=== PATIENT | female | born 1955 | race Caucasian/White ===

== ENCOUNTER → 2021-05-15 10:49 | Outpatient (BNVA) | payer MEDICARE, OTHER, SELFPAY | PROVIDERS: PCP Nurse Practitioner Adult Health; Visit Provider Orthopaedic Surgery | DX: M54.5 Low back pain (principal); Z47.89 Encounter for other orthopedic aftercare; Z98.1 Arthrodesis status | CPT/HCPCS: 72110 ==

== ENCOUNTER → 2021-05-29 11:58 | Day surgery (SDC) | payer MEDICARE, OTHER, SELFPAY | PROVIDERS: PCP Nurse Practitioner Adult Health; Visit Provider Orthopaedic Surgery | DX: Z01.818 Encounter for other preprocedural examination (principal) | CPT/HCPCS: 80048; 85025; 93005 ==

== ENCOUNTER 2021-05-29 13:26 | Outpatient (CLI) | payer MEDICARE, OTHER, SELFPAY ==
--- NOTE | 2021-05-29 13:55 | MR_ITS ---
WS: [id number] MRI THORACIC SPINE noncontrast. HISTORY: M40.209 - Unspecified kyphosis, site unspecified COMPARISON: Prior MRI lumbar spine and CT lumbar spine reviewed. TECHNIQUE: Multiplanar sequences are performed in sagittal and axial planes. Quality of this study is significantly compromised by artifact from the hardware in the lumbar spine and thoracic spine. Mild central cervical stenosis due to focal kyphosis at C2-3. There are 11 rib-bearing vertebral bodies. 5 lumbar nonrib-bearing vertebral bodies are identified. A rtifact in the dorsal column from T7 to T10 from the dorsal column stimulator electrodes and wires. T here is increase in the thoracic kyphosis. Disc spaces are diffusely narrowed with osteophytic ridging and disc bulging throughout the thoracic spine. Axial evaluation of the disc spaces and foramina is limited. At T6-7 bilateral small paracent ral disc protrusions. T7-8: Mild RIGHT foraminal stenosis. There is significant artifact through the mid thoracic spine. MR/MR thoracic spin wo con* [id number] IMPRESSION: 1. Quality of this examination is significantly compromised by dorsal column s timulator, kyphosis and lumbar hardware. 2. No high-grade central stenosis or cord compression. 3. Small paracentral disc protrusions at C6-7. 4. No signal abnormality within the cord is identified. 5. 11th thoracic vertebral bodies.
== END 2021-05-29 13:27 | disposition home or self-care (01) ==
PROVIDERS: PCP Nurse Practitioner Adult Health; Visit Provider Orthopaedic Surgery
DX: M40.209 Unspecified kyphosis, site unspecified (principal); Z20.822 Contact with and (suspected) exposure to COVID-19; M50.223 Other cervical disc displacement at C6-C7 level
CPT/HCPCS: 72146; 87635

== ENCOUNTER 2021-06-05 17:33 | Inpatient (IN) | payer MEDICARE, OTHER, SELFPAY ==
[2021-05-29 11:53] VITALS: BMI 23.6
--- NOTE | 2021-05-29 11:58 | ECG_ITS ---
[facility] Test Date: 2021-05-29 Pat Name: Estefany Neumann Department: Room: Gender: Female Director Of Recruitment: : 1955 Requested By: Britton Lenz Order Number: [id number] Geovani MD: Aaliyah Easley M.D. Measurements Intervals [place] Rate: 59 P: 59 [place]: 165 QRS: -22 QRSD: 82 T: 4 QT: 411 QTc: 408 Interpretive Statements SINUS BRADYCARDIA SEPTAL MYOCARDIAL INFARCTION [40+ ms Q WAVE IN V1/V2], PROBABLY OLD Nonspecific T wave change No previous ECG available for comparison Electronically Signed On 05-30-2021 0:50:38 CDT by Aaliyah Easley M.D. [email or web address]
[2021-05-29 12:20] LABS: Basophils % 0.6 %; Eosinophils # 0.3 10^3/uL (0.0-0.8); Eosinophils % 3.8 %; Hematocrit 36.7 % (37.0-47.0); Hemoglobin 11.7 g/dL (11.5-15.3); Lymphocytes # 1.4 10^3/uL (0.8-4.8); Lymphocytes % 20.6 %; Mean Corpuscular HGB Conc 31.9 g/dL (30.0-36.0); Mean Corpuscular Hemoglobin 29.3 pg (28.0-34.0); Mean Corpuscular Volume 91.8 fL (81-99); Mean Platelet Volume 10.5 fL (7.4-10.4); Monocytes # 0.4 10^3/uL (0.2-0.9); Monocytes % 6.6 %; Neutrophils # 4.53 10^3/uL (1.8-7.7); Neutrophils % 68.2 %; Nucleated Red Blood Cells % 0 %; Platelet Count 311 10^3/cmm (130-400); Red Cell Distribution Width 12.8 % (12.1-15.1); White Blood Count 6.6 10^3/uL (4.0-10.0)
[2021-05-29 12:37] LABS: Anion Gap 16.2 (5-19); Blood Urea Nitrogen 19 mg/dL (8-23); Calcium 8.6 mg/dL (8.5-10.5); Carbon Dioxide 26 mmol/L (22-29); Chloride 101 mmol/L (98-107); Glomerular Filtration Rate 37.5 mL/min (90-130); Glucose 106 mg/dL (65-115); Osmolality Calculated 291 mOsm/kg (285-295); Potassium 4.2 mmol/L (3.5-5.1); Sodium 139 mmol/L (136-145)
--- NOTE | 2021-05-29 12:38 | ANES.PREANE2 ---
Pre-Anesthetic Assessment Pre-Anesthetic Assessment: Height/Weight: Height 1.55 m Weight 56.699 kg Preop Diagnosis: proximal junctional kyphosis Proposed Procedure: Operation Date: 06/05/21 07:00 Proposed Procedures p PLIF at L2/3 w revision [id number] removal of hardware from the spine, removal of spinal cord stimulator. 97872, 32562, 69317, 08116, 00381, 27961, 68660, 78568, 70655, 72124 M40.209 M96.1(Not Applicable) - Mauricio Guerrero, DO Was Beta Kian taken within 24 hours: Yes Was Clonidine taken within 24 hours: N/A Social: Social History: Tobacco (h/o smoking) and No alcohol Exam: Pre-Anes Outpt Exam: alert, oriented x 3 and regular rate & rhythm Airway: Submandibular: WNL Cervical ROM: WNL MP: 2 Dentition: False Pulmonary: Pulmonary: COPD CV/HEM: CV/HEM: CAD, HTN and PVD Comments: To see cardiology 05/31. GI: GI: GERD Musc/skel: Musc/skel: Lower Back Pain and OA/DJD Anesthetic Plan: ASA status: 3 Anesthesia: General Other: A.line Risk of > 500 ml blood loss (7ml/kg in children): Yes, adequate IV access and fluids planned PFSH Anesthesia PFSH: Social History (Updated 05/15/21 @ 11:35 by Katrin Long LPN) Smoking and tobacco status: former smoker Data Anesthesia CBC & Chem 7: 05/29/21 12:08 05/29/21 12:08 Other Labs: Laboratory Results - last 48 hr 05/29/21 05/29/21 12:08 12:08 WBC 6.6 RBC 4.00 L Hgb 11.7 Hct 36.7 L MCV 91.8 MCH 29.3 MCHC 31.9 RDW 12.8 Plt Count 311 MPV 10.5 H Neut % (Auto) 68.2 Lymph % (Auto) 20.6 Addison % (Auto) 6.6 Eos % (Auto) 3.8 Baso % (Auto) 0.6 Neut # (Auto) 4.53 Lymph # (Auto) 1.4 Addison # (Auto) 0.4 Eos # (Auto) 0.3 Baso # (Auto) 0.0 Nucleated RBC % (auto) 0 Nucleated RBCs # 0.0 Sodium 139 Potassium 4.2 Chloride 101 Carbon Dioxide 26 Anion Gap 16.2 BUN 19 Glucose 106 Calculated Osmolality 291 Calcium 8.6 Cardiac Studies: No Data to Display
[2021-06-05] VITALS (29 sets, daily range): BP systolic 111–190; BP diastolic 60–103; PULSE 54–77; RESP 12–26; TEMP 36.3–36.6; O2SAT 92–100
--- NOTE | 2021-06-05 | SCC_ITS ---
Procedure Done: 1. L2/3 Interbody fusion with posterolateral fusion 2. Instrumentation T9-S1 3. Lumbopelvic Instrumentation 4. Fusion from T9 to pelvis 5. Cage at L2/3 6. Laminectomy L2 7. Removal of deep hardware from spine 8. Removal of nerve stimulator 9. removal of battery pack from nerve stimulator 10. use of autograft from same incision 11. allograft 12. Bone marrow aspirate from right iliac crest 13. Use of computer navigation/ stereotactic for the spine 14. Isabel- Tico Osteotomy T12 to correct kyphosis 30 seconds of fluoroscopic guidance, for a cumulative dose of 24.6 mGy, was provided to Dr. Guerrero by the radiology department. C-arm images of the lumbar spine were saved for the patient's permanent record. KATHI
--- NOTE | 2021-06-05 08:36 | P.ANESUD_ITS ---
Pre-Anesthetic Update Pre-Anesthetic Assessment: Date of Surgery/Procedure: 06/05/21 Preop Fiona gnosis: proximal junctional kyphosis Proposed Procedure: Operation Date: 06/05/21 11:00 Proposed Procedures p PLIF at L2/3 w revision [id number]-Loyzih removal of hardware from the spine, removal of spinal cord stimulator. 34223, 05837, 43127, 22011, 66267, 25680, 94693, 69599, 85638, 81570 M40.209 M96.1(Not Applicable) - Mauricio Guerrero, DO Any changes to Pre-Anesthetic Assessment?: No Exam: Pre-Anes Outpt Exam: alert, oriented x 3, clear to auscultation bilaterally and regular rate & rhythm Cardiac Studies: No Data to Display
--- NOTE | 2021-06-05 08:36 | ANES.PAUD2 ---
Pre-Anesthetic Update Pre-Anesthetic Assessment: Date of Surgery/Procedure: 06/05/21 Preop Diagnosis: proximal junctional kyphosis Proposed Procedure: Operation Date: 06/05/21 11:00 Proposed Procedures p PLIF at L2/3 w revision T37-Jeesnd removal of hardware from the spine, removal of spinal cord stimulator. 45576, 34624, 26016, 62496, 01595, 81920, 29693, 47849, 63184, 66320 M40.209 M96.1(Not Applicable) - Mauricio Guerrero, DO Any changes to Pre-Anesthetic Assessment?: No Exam: Pre-Anes Outpt Exam: alert, oriented x 3, clear to auscultation bilaterally and regular rate & rhythm Cardiac Studies: No Data to Display
--- NOTE | 2021-06-05 09:16 | XRR_ITS ---
PROCEDURE INFORMATION: Exam: XR Chest Exam date and time: 06/05/2021 9:16 AM Age: 66 years old Clinical indication: Pre-operative exam; Cardiovascular screening and respiratory screening exam; Additional info: Surgery TECHNIQUE: Imaging protocol: XR of the chest. Views: 1 view. COMPARISON: No relevant prior studies available. FINDINGS: Tubes, catheters and devices: Thoracic spinal stimulator present. Lungs: No pneumonia or pulmonary edema. Pleural spaces: No pleural effusion or pneumothorax. Heart/Mediastinum: The cardiac silhouette is not enlarged. The mediastinal contours are normal. Bones/joints: No acute osseous abnormality. XR/XR chest 1V portable [id number] IMPRESSION: No acute abnormality.
--- NOTE | 2021-06-05 09:29 | P.HPUD_ITS ---
Surgery/Procedure H&P Update DATE OF PROCEDURE: June 05, 2021 DATE H&P PERFORMED: 06/05/21 PREOP DIAGNOSIS: proximal junctional kyphosis PLANNED PROCEDURE: Operation Date: 06/05/21 11:00 Proposed Procedures p PLIF at L2/3 w revision Q45-Lqweho removal of hardware from the spine, removal of spinal cord stimulator. 23318, 26854, 21729, 86508, 67979, 12314, 74897, 62955, 25367, 96024 M40.209 M96.1(Not Applicable) - Mauricio Guerrero, DO
--- NOTE | 2021-06-05 09:29 | W.PM.OPSUD ---
Surgery/Procedure H&P Update DATE OF PROCEDURE: June 05, 2021 DATE H&P PERFORMED: 06/05/21 PREOP DIAGNOSIS: proximal junctional kyphosis PLANNED PROCEDURE: Operation Date: 06/05/21 11:00 Proposed Procedures p PLIF at L2/3 w revision T64-Xovuil removal of hardware from the spine, removal of spinal cord stimulator. 29437, 77541, 97436, 87859, 74632, 34907, 34474, 90425, 92748, 72555 M40.209 M96.1(Not Applicable) - Mauricio Guerrero, DO
--- NOTE | 2021-06-05 09:30 | PM.HP ---
Providers/Chief Complaint Primary Care Provider: Sienna Vora APRN Chief Complaint: PLIF at L2/3 w revision Z03-Mndbmz removal of hard History of Present Illness Estefany Neumann is a 66 year old femaleback pain. She is using a walker. Patient is unable to stand up straight. Chief Complaint: back and neck pain Onset: years Duration: years Characteristics: ache Severity: 210 Location: neck and neck Radiating symptoms: bilat lower extremities numbness , numbness to medial right thigh Aggravating factors: standing up straight, pain stim, unable to walk any distance Alleviating factors: Tylenol decreases pain Neuro deficits: denies incontinence of bowel/bladder, saddle anesthesia. Prior tx: pain stimulator Hf10 Nevro implant in 11/[address] Mac, physical therapy with no change in symptoms Review of Systems Narrative: General ROS: negative for weight changes, fever ENT ROS: negative for nasal congestion, drainage or bleeding, sore throat, dysphagia or ear pain Eyes: PERRL Hematological and Lymphatic ROS: negative for swollen glands or abnormal bleeding Endocrine ROS: negative for polyuria/polydpsia or new changes in weight Respiratory ROS: negative for cough, shortness of breath, or wheezing Cardiovascular ROS: negative for chest pain or dyspnea on exertion Gastrointestinal ROS: negative for reflux, abdominal pain, change in bowel habits, or black or bloody stools Musculoskeletal ROS: negative for back pain, neck pain, or joint pain or swelling except for current problem Neurological ROS: negative for TIA or stoke symptoms Skin: no rashes Medications/Allergies Home Medications Medication Instructions Recorded Confirmed Last Taken Type albuterol sulfate 90 mcg/actuation 2 puff INHALATION Q6H PRN 05/15/21 05/29/21 Unknown History aerosol inhaler budesonide-formoterol HFA 80 2 puff INHALATION BID 05/15/21 05/29/21 Unknown History mcg-4.5 mcg/actuation aerosol inhaler clopidogrel 75 mg tablet 75 mg PO DAILY 05/15/21 05/29/21 Unknown History duloxetine 30 mg capsule,delayed 30 mg PO DAILY 05/15/21 05/29/21 Unknown History release metoprolol suc 100 1 tab PO DAILY 05/15/21 05/29/21 Unknown History mg-hydrochlorothiazide 12.5 mg tablet,ext.rel 24 hr nitroglycerin 0.4 mg sublingual 0.4 mg SUBLINGUAL Q5M PRN 05/15/21 05/29/21 Unknown History tablet pantoprazole 40 mg tablet,delayed 40 mg PO DAILY 05/15/21 05/29/21 Unknown History release rizatriptan 10 mg tablet 10 mg PO Q2H PRN 05/15/21 05/29/21 Unknown History rosuvastatin 40 mg tablet 40 mg PO DAILY 05/15/21 05/29/21 Unknown History zolpidem 10 mg tablet 10 mg PO DAILY 05/15/21 05/29/21 Unknown History ropinirole 1 mg PO DAILY 05/29/21 05/29/21 Unknown History Allergies Allergy/AdvReac Type Severity Reaction Status Date / Time meperidine [From Demerol] Allergy ADR-Migrain Verified 05/29/21 11:47 e PFSH Acute PFSH: Social History (Updated 05/15/21 @ 11:35 by Katrin Long LPN) Smoking and tobacco status: former smoker Physical Exam Narrative: EXAM NARRATIVE: CONSTITUTIONAL: The patient is a normal appearing [] in no apparent distress. GENERAL: Patient in no acute distress. CARDIAC: Regular rate and rhythm. CHEST: Normal inspiratory effort, normal respiratory rate. ABDOMEN: Soft and nontender. SKIN: Clear, warm and intact. NEURO?PSYCH: The patient is alert and oriented to person, place and time. Sensorv /SILT Motor StrengthShoulder abduction C5 5/5Wrist extension C6 5/5Elbow extension C7 5/5Hand Laborer Syrup Machine C8 5/5Finger abduction T15/5 Radial/ Ulnar/ Median n intact LowerSensory (SILT)Motor StrengthHin flexion L2/3Ant/inner thigh 5/5Hip adduction L2/3 5/5Knee extension L4 Lat thigh, 5/5Toe dorsiflexion L5 5/5Ankle dorsiflexion L5/ V47Aqfdsxd flexion S1 5/5 DTRBleeps 2+Triceps 2+Brachioradialis 2+Patellar 2+Achilles 2+ MUSCULOSKELETAL: [] UPPEREXTREMITIES: The patient had full active ROM in fingers, wrist, elbow, and shoulder. The patient demonstrated ability to fully flex/extend/abduct/adduct fingers, make ok sign, cross 2nd/3rd digits, extend 1st digit fully.. Radial pulse 2+, CR<2 seconds. LOWER EXTREMITIES: Pt has full, active ROM of toes, ankle, knee, and hip. Dorsalis pedis/posterior tibialis pulses 2+, CR<2 seconds. SPINE: Skin warm, dry, intact. 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
[2021-06-05] MEDS: heparin, porcine 1,000 unit/mL INJ 10 mL 10000 UNIT IRRIGATION (11:37)
[2021-06-05] MEDS: vancomycin 1,000 MG SDV 1000 MG XX ×2 (11:37→15:35)
--- NOTE | 2021-06-05 15:56 | XR_ITS ---
WS: [id number] Lumbar spine, C-arm fluoroscopy views, 06/05/2021 Clinical Data: LUMBAR PAIN Comparison: Lumbar spine, 05/15/2021. Findings: The patient has at least 7 pairs of pedicle screws from the lower thoracic level to the L5-S1 one lev el. There are interbody fusions at at least 4 levels from L1-L2 through L4-L5. There is an aortic end ograft in position. XR/XR lumbar spine 1V [id number] Impression: Multilevel lower thoracic and lumbar posterior fusion with multiple interbody f usion devices.
--- NOTE | 2021-06-05 16:11 | PM.OP ---
Operative Report Date of procedure: June 05, 2021 Pre-op Diagnosis: proximal junctional kyphosis Post-op diagnosis: same Procedure Done: 1. L2/3 Interbody fusion with posterolateral fusion 2. Instrumentation T9-S1 3. Lumbopelvic Instrumentation 4. Fusion from T9 to pelvis 5. Cage at L2/3 6. Laminectomy L2 7. Removal of deep hardware from spine 8. Removal of nerve stimulator 9. removal of battery pack from nerve stimulator 10. use of autograft from same incision 11. allograft 12. Bone marrow aspirate from right iliac crest 13. Use of computer navigation/ stereotactic for the spine 14. Isabel- Tico Osteotomy T12 to correct kyphosis Surgeon: Mauricio Guerrero Anesthesia: General Estimated blood loss (mL): 200 Condition: stable Disposition: PACU Procedure: 1. L2/3 Interbody fusion with posterolateral fusion 2. Instrumentation T9-S1 3. Lumbopelvic Instrumentation 4. Fusion from T9 to pelvis 5. Cage at L2/3 6. Laminectomy L2 7. Removal of deep hardware from spine 8. Removal of nerve stimulator paddle 9. removal of battery pack from nerve stimulator 10. use of autograft from same incision 11. allograft 12. Bone marrow aspirate from right iliac crest 13. Use of computer navigation/ stereotactic for the spine 14. Isabel- Tico Osteotomy T12 to correct kyphosis Patient is brought to the operative suite. After undergoing anesthesia, the patient had neuro monitoring attached. Patient was then placed in the prone position on the Gabriel table. All areas of impingement were well-padded. Patient was then prepped and draped in the normal sterile fashion. Skin incision was then made from T9-Sacrum. Subperiosteal dissection was made out to the transverse processes of T9 and sacral ala. Once the exposure was complete attention was then brought to removing the pedicle screws that were curently in there. This was a Mark system there are multiple parts. All the parts were removed. Once all hardware was removed the pedicle screw holes were palpated and then the screws were placed into those holes at L3-L4-L5 and S1. Next attention was brought to the neurostimulator at the T10 level. The wires were identified and traced into the laminectomy site at T10. The laminectomy site was cleared. The neurostimulator was then pulled slowly. There is minimal bleeding once the paddle was removed. The wires were cut. And the paddle was removed. Attention was brought to removing the battery of the neurostimulator. Previous skin incision was used skin as it was opened and then the battery pack was removed from over the right iliac crest. Because incision was over the right iliac crest. The fiducial was connected by placing the pins. Once the pins were connected then the patient was connected to the pins and then linked to the computer. The PASSNFLY C arm was spun around and this data was then sent to the computer. Prior to placing the pedicle screws the [employer] (IMMI) bone marrow aspirate kit was used to aspirate bone marrow aspirate from the right iliac crest. This was done by using the sharp probe to open up the bone. Aspiration was performed and then the blunt probe was then used to dissect down to through the bone tunnel. An aspirating well drawn back a millimeter approximately 20 cc of bone marrow aspirate was used. And mixed with the allograft and autograft bone that will be used. The technique for placing the pedicle screws was to use a drill followed by the gearshift probe that is linked to the computer navigation. Followed by the ball probe to feel the superior inferior medial lateral keys of the pedicles. Then placement of the screws length to the computer navigation. Was done at each pedicle. Screws were placed at T9-L2. The L3 to S1 screws had already been placed using the previous screw holes where old hardware was removed. Next attention was brought to placing the iliac screws. This was done by placing the screws through the sacrum into the ala into the iliac crest. This was done using the gearshift probe that is linked to the navigation. Ball probe was then used then a 7.5 tap was used and then on the right side an 80 mm 8.5 pedicle screws placed. And on the left side a 70 screw was used. But the same technique. Next attention was brought to performing the laminectomy ofL2. This was done using the high-speed bur Kerrisons and curettes. Once the lamina was removed and then attention was brought to performing a partial facetectomy on the contralateral side. This was done again using the high-speed bur curettes and Kerrisons. The ligamentum flavum was taken down bilaterally from L2 to L3. Attention was then brought to the facet on the ipsilateral side. The facet was taken down. The L3 nerve was decompressed as it passed around the L3 pedicle. The laminectomy was done for purposes of decompressing the nerve as well as placement of the cage. The L2 nerve was identified as it traversed through the L2/3 foramen. The thecal sac was identified and retracted. The L2/3 disc space was identified. Using a knife the disc space was opened. And then sequential pam were placed. The first shaver was a 6 and the last shaver was a 8. Using a pituitary and down going curette the endplates were scraped and disc material was removed from the space. Once adequate decompression of the disc base was felt to be had. Osteoamp sponge was packed into the anterior aspect of the disc base. Then a size 8 cage from [employer] was placed after packing osteoamp into the cage. While placing the cage the thecal sac and L3 nerve was protected. C arm was used to ensure that the cages placed in the appropriate position. Next attention was brought to performing Isabel Tico osteotomy at T12. Laminectomy was performed and bilateral facets were taken down. This was done using high-speed bur and Kerrison rongeurs. Attention was then brought to attaching the rods to the screws placed in the bilaterally from L3 to the pelvis bilaterally. These rods were then torqued down. Attention was then brought to attaching the reduction tool onto the L2 and L1 screws bilaterally. And sequentially these were reduced the nusrat in order to facilitate patient getting her lordosis back and improving her lordosis. The rods were then reduced down and then the L2 was compressed L3 and L1 was compressed L2 using both the plate of osteotomy and the Isabel Tico osteotomy to facilitate regaining some lordosis. Caps were then placed sequentially from L2 up to T9. Caps were torqued into position. Locking the construct in place. Wound was copiously irrigated and then attention was brought to decorticating the facets and transverse processes laterally. Bone that was taken down from the lamina was used along with osteoamp fibers and sponges were packed into the lateral gutters along the facet joints. This was done bilaterally. Wound was then closed in a layered fashion starting with the thoracolumbar fascia. 0-stratafixwas used the sub cutaneous tissue was closed with 2-0 stratafix and skin with 3-o nylon Vicryl and nylon used to close the pouch where the prior battery pack was prior to doing this the pins for the fiducial removed.a steril Silverlon dressing was applied. Patient was then placed in the supine position. The endotracheal tube was removed and patient was transferred to the PACU in stable condition.
[2021-06-05] MEDS: fentaNYL 50 mcg/mL INJ 2mL IVP ×2 (16:51→16:56)
--- NOTE | 2021-06-05 17:49 | ANE.PACU2 ---
Inpatient post-anesthesia follow up: Airway intact: Yes Vital signs: Temperature 97.8 F Pulse Rate 63 Respiratory Rate 12 Blood Pressure 169/89 Pulse Oximetry 100 Oxygen Delivery Me thod Simple Mask Oxygen Flow Rate 8 Fraction of Inspir ed Oxygen Hydration adequate: Yes Nausea and vomiting: No Pain level: 3 Mental status: Baseline
[2021-06-05] MEDS: HYDROmorphone 1 mg/mL INJ 1 mL 0.5 MG IVP (18:01)
[2021-06-05] MEDS: hyDRALAzine 20 mg/mL INJ 1 mL 5 MG IVP (18:56)
[2021-06-05] MEDS: lactated ringers 1,000 ML 90 ML IV (18:56)
--- NOTE | 2021-06-05 18:58 | PM.CONSULT ---
Providers/Reason For Consult Consulting Physician/Specialty*: Hospitalist Reason for Consult*: medical management Attending Physician: Mauricio Guerrero DO Primary Care Provider: Sienna Vora APRN History of Present Illness History of Present Illness Pleasant 66-year-old lady who just arrived upstairs after surgery with multilevel disc fusion, removal of old hardware, removal of spinal stimulator. She is waking up from anesthesia. States mouth is dry. Otherwise is doing well. She tells me she has history of COPD for which she is on 4 L chronic oxygen. Uses CPAP at night. She has history of CAD with MO, stenting, for which she takes Plavix, metoprolol, rosuvastatin. Denies history of CHF. Denies history of CVA. Has history of HTN, HLD, GERD, RLS. She reports she otherwise has been at baseline state of health. Review of Systems Const: Denies: fever(s), chills, body aches or malaise Eyes: Denies: change in vision or eye redness ENMT: Denies: throat pain, oral sores or ear or mastoid pain Card: Denies: chest pain, edema, pre-syncope or dyspnea on exertion Resp: Denies: dyspnea, productive cough, change in phlegm color or hemoptysis GI: Denies: abdominal pain, nausea, vomiting, diarrhea, constipation, hematochezia or melena : Denies: flank pain, urinary frequency or hematuria Musc: Reports: back pain; Denies: joint swelling or joint redness Skin/Breast: Denies: rash, sores or new lesions Neuro: Denies: headache(s), numbness in extremities, weakness in extremities, dizziness, confusion or seizure-like activity Endo: Denies: polyuria or polydipsia Sal/Lymph: Denies: easy bleeding or purpura All/Imm: Denies: urticaria, throat swelling or tongue swelling Meds/Allergies Home Medications and Allergies Home Medications Medication Instructions Recorded Confirmed Last Taken Type albuterol sulfate 90 mcg/actuation 2 puff INHALATION Q6H PRN 05/15/21 06/05/21 06/04/21 History aerosol inhaler budesonide-formoterol HFA 80 2 puff INHALATION BID 05/15/21 06/05/21 06/04/21 History mcg-4.5 mcg/actuation aerosol inhaler clopidogrel 75 mg tablet 75 mg PO DAILY 05/15/21 06/05/21 05/28/21 History duloxetine 30 mg capsule,delayed 30 mg PO DAILY 05/15/21 06/05/21 06/04/21 History release metoprolol suc 100 1 tab PO DAILY 05/15/21 06/05/21 06/05/21 History mg-hydrochlorothiazide 12.5 mg tablet,ext.rel 24 hr nitroglycerin 0.4 mg sublingual 0.4 mg SUBLINGUAL Q5M PRN 05/15/21 05/29/21 Unknown History tablet pantoprazole 40 mg tablet,delayed 40 mg PO DAILY 05/15/21 06/05/21 06/05/21 History release rizatriptan 10 mg tablet 10 mg PO Q2H PRN 05/15/21 06/05/21 06/04/21 History rosuvastatin 40 mg tablet 40 mg PO DAILY 05/15/21 06/05/21 06/03/21 History zolpidem 10 mg tablet 10 mg PO DAILY 05/15/21 06/05/21 06/03/21 History ropinirole 1 mg PO DAILY 05/29/21 06/05/21 06/05/21 History Allergies Allergy/AdvReac Type Severity Reaction Status Date / Time meperidine [From Demerol] Allergy ADR-Migrain Verified 05/29/21 11:47 e Current Medications Current Medications Generic Name Dose Route Start Last Admin Trade Name Freq PRN Reason Stop Dose Admin Docusate Sodium 100 mg 06/05/21 18:00 06/05/21 18:34 Docusate Sodium 100 Mg Capsule PO Not Given BID RICHIE PFSH Acute PFSH: Medical History AAA (abdominal aortic aneurysm) Carpal tunnel syndrome Chronic kidney disease COPD (chronic obstructive pulmonary disease) Coronary atherosclerosis GERD (gastroesophageal reflux disease) HTN (hypertension) Insomnia Migraine Non-alcoholic fatty liver disease Surgical History History of cataract removal with insertion of prosthetic lens History of cholecystectomy History of foot surgery History of heart artery stent History of intestinal surgery Hx of appendectomy Hx of tonsillectomy Previous back surgery Family History Other No significant family history Social History (Updated 06/05/21 @ 19:02 by Cesar Michelle MD) Smoking and tobacco status: former smoker Alcohol intake: never Substance/Drug Use: never Lives independently: Yes Household members: spouse Marital status: Current occupational status: retired Vitals/I&O/Wt Last Vital Signs Temp 97.5 F L 06/05/21 18:30 Pulse 71 06/05/21 18:36 Resp 18 06/05/21 18:36 BP 190/90 06/05/21 18:30 Pulse Ox 97 06/05/21 18:36 06/05/21 06/05/21 06/05/21 06:59 14:59 22:59 Intake Total 100 / 100 1000 / 1100 Output Total 350 / 350 Balance 100 / 100 650 / 750 Physical Exam Const: COMMON NORMALS: no acute distress and patient oriented x3 GENERAL APPEARANCE: lethargic ORIENTATION/CONSCIOUSNESS: Yes lethargic HENMT: COMMON NORMALS: oropharynx normal Neck/C-Spine: COMMON NORMALS: no JVD Resp: COMMON NORMALS: normal respiratory effort and clear to auscultation bilaterally AUSCULTATION: clear to auscultation bilaterally Cardio: COMMON NORMALS: no JVD, regular rhythm, S1 normal heart sound present, S2 normal heart sound present and No murmurs present (Cardio) RHYTHM: regular rhythm HEART SOUNDS: S1 normal heart sound present and S2 normal heart sound present GI: COMMON NORMALS: Normal to inspection, nondistended, normoactive bowel sounds present, Soft to palpation and non-tender PALPATION: Yes Soft to palpation Back/Pelvis: OTHER: Spinal drain Extremity: COMMON NORMALS: no joint enlargement and no pedal edema Neuro: COMMON NORMALS: patient oriented x3 and moves all extremities SENSORIUM/ORIENTATION: Yes lethargic Skin: COMMON NORMALS: no rashes or lesions noted GENERAL SKIN EXAM: no rashes or lesions noted Urinary Catheter Management^: F: Cath Placed During This Visit: yes, but has since been removed by the nurse Urinary Catheter Date of Insertion: 06/05/21 Urinary Catheter Time of Insertion: 10:50 Date Urinary Catheter Removed: 06/05/21 Time Urinary Catheter Discontinued: 16:05 A&P Assessment and plan (1) Postural kyphosis of lumbar region: Recovering from anesthesia. Doing well postoperatively after report an uneventful surgery. Cautious resumption of diet while recovering from anesthesia. Starting with some mouth swabs. May advance as she is waking up. Discussed with her and nursing staff. PT assessment. Disposition planning. Status: Acute Additional A&P Information COPD: On chronic 4 L of oxygen. Continue. Not in exacerbation. LUIS ANTONIO: Continue nightly CPAP CAD status post stenting: Continue Plavix, beta-dwight, statin. Has no chest pain. HTN: Blood pressure elevated after surgery, denies pain at this time, did not yet resume oral intake. Received 5 mg IV hydralazine x1. Continue metoprolol, monitor blood pressures. GERD: Continue PPI RLS: Continue ropinirole Consult Attestations Medical Necessity Statement: Continue postoperative care after revision of spinal surgery multilevel fusion, removal of spinal stimulator in a lady with multiple underlying comorbidities. Coding Level of Care Code Acute Fisher Diver Net for Mohit Fwd Diagnoses Postural kyphosis of lumbar region M40.05
--- NOTE | 2021-06-05 20:29 | PC.NURSE ---
SSROUNDING NOTE Wakes easily to name. Told me her pain was a 10 but went back to sleep before RN to room with IV Morphine. Was resting comfortably with eyes closed. Med held for now.
[2021-06-05] MEDS: HYDROcodone-acetaminophen 5-325 mg Tablet PO (21:12)
[2021-06-05] MEDS: morphine 4 mg/mL SDV 1 mL 2 MG IVP (21:45)
[2021-06-06] VITALS (14 sets, daily range): BP systolic 78–173; BP diastolic 38–80; PULSE 61–83; RESP 14–20; TEMP 36.4–36.7; O2SAT 95–100
[2021-06-06] MEDS: HYDROcodone-acetaminophen 5-325 mg Tablet PO ×3 (01:10→09:43)
[2021-06-06 02:45] LABS: Basophils % 0.1 %; Hematocrit 31.7 % (37.0-47.0); Hemoglobin 9.7 g/dL (11.5-15.3); Lymphocytes # 0.6 10^3/uL (0.8-4.8); Lymphocytes % 4.7 %; Mean Corpuscular HGB Conc 30.6 g/dL (30.0-36.0); Mean Corpuscular Volume 94.9 fL (81-99); Monocytes # 0.6 10^3/uL (0.2-0.9); Neutrophils # 12.39 10^3/uL (1.8-7.7); Neutrophils % 90.8 %; Nucleated Red Blood Cells % 0 %; Platelet Count 304 10^3/cmm (130-400); Red Blood Count 3.34 10^6/uL (4.1-5.3); Red Cell Distribution Width 12.5 % (12.1-15.1); White Blood Count 13.7 10^3/uL (4.0-10.0)
[2021-06-06 03:09] LABS: Anion Gap 13.9 (5-19); Blood Urea Nitrogen 16 mg/dL (8-23); Calcium 8.1 mg/dL (8.5-10.5); Carbon Dioxide 25 mmol/L (22-29); Chloride 104 mmol/L (98-107); Glomerular Filtration Rate 40.7 mL/min (90-130); Glucose 138 mg/dL (65-115); Osmolality Calculated 289 mOsm/kg (285-295); Potassium 4.9 mmol/L (3.5-5.1); Sodium 138 mmol/L (136-145)
[2021-06-06 03:11] LABS: Creatinine Clr Calc Pharmacy 33.5813
[2021-06-06] MEDS: morphine 4 mg/mL SDV 1 mL 2 MG IVP ×3 (03:15→20:20)
[2021-06-06] MEDS: alum-mag-hydroxide-sime 30 mL UDC PO (03:19)
[2021-06-06] MEDS: lactated ringers 1,000 ML 90 ML IV ×2 (06:01→17:14)
--- NOTE | 2021-06-06 06:44 | PC.NURSE ---
SHIFT SUMMARY Has rested for intervals tonight. Has c/o back pain and has received IV Morphine and po Hydrocodone meds. IV infusing at 90ml/hr rate. Receiving scheduled IV antibotics. Dressing to medial back has remained C&D. Abd binder in place. Hemovac drain with 465ml sanguinous drainage this shift.
--- NOTE | 2021-06-06 06:47 | PC.NURSE ---
Addendum entered by Katie Holliday LPN 06/06/21 07:34: Was up to [facility] to attempt voiding without result Original Note: VOIDING Pt has not voided this shift. Bladder scan was done and showed 325ml in bladder. Message to Dr Stapleton with no orders yet
--- NOTE | 2021-06-06 07:10 | P.PN_ITS ---
Subjective Subjective: Interval history: pain controlled Vitals/I&O/Wt Last Vital Signs Temp 97.9 F 06/06/21 04:35 Pulse 72 06/06/21 04:35 Resp 14 06/06/21 04:35 BP 131/72 06/06/21 04:35 Pulse Ox 95 06/06/21 04:35 06/05/21 06/06/21 06/06/21 22:59 06:59 14:59 Intake Total 1150 / 1250 1167.5 / 2417.5 Output Total 575 / 575 240 / 815 Balance 575 / 675 927.5 / 1602.5 Physical Exam Narrative: EXAM NARRATIVE: 04/04 strengthlower extremities Urinary Catheter Management^: F: Cath Placed During This Visit: yes, but has since been removed by the nurse Urinary Catheter Date of Insertion: 06/05/21 Urinary Catheter Time of Insertion: 10:50 Date Urinary Catheter Removed: 06/05/21 Time Urinary Catheter Discontinued: 16:05 Data : 06/06/21 02:11 06/06/21 02:11 A&P Assessment and plan (1) Postural kyphosis of lumbar region: POD#1 T10 - pelvis d/c Drain today up with PT anticipate d/c next 1-2 days Status: Acute Attestations Medical Necessity Statement*: pain control Coding Level of Care Code Acute Supervisor Capacitor Processing for Mohit Soto Diagnoses Postural kyphosis of lumbar region M40.05
--- NOTE | 2021-06-06 07:33 | PC.NURSE ---
STRAIGHT CATH Straight cath done with 400ml urine returned
[2021-06-06] MEDS: duloxetine 30 mg Capsule PO (08:16)
[2021-06-06] MEDS: hydroCHLOROthiazide 25 mg Tablet 12.5 MG PO (08:16)
[2021-06-06] MEDS: pantoprazole DR 40 mg Tablet PO (08:17)
[2021-06-06] MEDS: atorvastatin 40 mg Tablet 80 MG PO (08:17)
[2021-06-06] MEDS: clopidogrel 75 mg Tablet PO (08:17)
[2021-06-06] MEDS: ropinirole 1 mg Tablet PO (08:17)
[2021-06-06] MEDS: metoprolol succinate ER (24 HR) 100 mg Tablet PO (08:17)
[2021-06-06] MEDS: docusate sodium 100 mg Capsule PO ×2 (08:17→17:14)
--- NOTE | 2021-06-06 10:37 | PC.CHAP ---
Pastoral Care Encounter/Spiritual Assessment Type of Contact [] Declined bag liner visit [] Patient/Family/Request visit [] Outpatient visit [] Follow-up visit [] Physician referral [] Code/Alert [x] Routine visit [] Staff referral [] Actively dying [x] Patient sleeping [] Family support [] [] Out of room [] Palliative care [] [] Receiving care in room [] Pre-surgical visit [] Trauma [] Long length of stay [] ICU visit [] Other: Relational/Emotional Strength [] Patient feels connected with others/family/visitors/staff [] Distress [] Loneliness/isolation [] Abandonment Spirituality of Patient [] Person of Tonja [] Attends Mandaeism of their Tonja [] Believes in Prayer [] Reads Bible or Episcopalian materials [] There are Spiritual issues to be addressed Watch Parts Inspector Interventions [] Prayer [] Active listening [] Non-anxious presence [] Spiritual/emotional support [] Crisis/trauma care [] Spiritual counseling [] Bereavement support [] Provided bereavement packet [] Provided Bible/devotional materials [] Provided toy/stuffed animal, coloring book to patient or family member [] Provided Communion [] Anointing/[place] [] Salvation [] Completed spiritual assessment [] Other: Impact on Illness or Injury [] Angry [] Fearful [] Anxious [] Often cries [] Exhaustion [] Unable to work [] Unable to attend sikhism [] Unable to walk/stand [] Unable to read [] Unable to drive [] Unable to eat/drink [] Unable to sleep [] Unable to be with family [] Patient intubated [] Other: Summary Time spent with patient
[2021-06-06] MEDS: sodium chloride 0.9% 250 ML 500 ML IV (12:31)
[2021-06-06] MEDS: acetaminophen 325 mg Tablet 650 MG PO (17:16)
--- NOTE | 2021-06-06 20:24 | PC.NURSE ---
Hemovac pulled then covered with gauze and covaderm. Pt tolerated it well
--- NOTE | 2021-06-06 21:05 | P.PN_ITS ---
Subjective Subjective: Interval history: This morning noted hypotensive, lightheaded while sitting up, complaining of pain in her neck, numbness in the left leg. Discussed with orthopedic surgery. Discussed with her. She had received her antihypertensives this morning. Blood pressure medications held. Responded well to small NS bolus, 250 mL. Blood pressures somewhat soft 106/60, maintain on bed rest for now to avoid orthostatic syncope until blood pressures reliably stabilized. Vitals/I&O/Wt Last Vital Signs Temp 97.8 F 06/06/21 16:00 Pulse 66 06/06/21 21:01 Resp 17 06/06/21 20:55 BP 106/60 06/06/21 16:00 Pulse Ox 98 06/06/21 20:55 06/06/21 06/06/21 06/06/21 06:59 14:59 22:59 Intake Total 1167.5 / 2417.5 730 / 730 1095 / 1825 Output Total 240 / 1015 500 / 500 225 / 725 Balance 927.5 / 1402.5 230 / 230 870 / 1100 Physical Exam Const: COMMON NORMALS: no acute distress, patient oriented x3 and alert GENERAL APPEARANCE: anxious ORIENTATION/CONSCIOUSNESS: Yes awake HENMT: COMMON NORMALS: oropharynx normal Neck/C-Spine: COMMON NORMALS: no JVD Resp: COMMON NORMALS: normal respiratory effort and clear to auscultation bilaterally AUSCULTATION: clear to auscultation bilaterally Cardio: COMMON NORMALS: no JVD, regular rhythm, S1 normal heart sound present, S2 normal heart sound present and No murmurs present (Cardio) RHYTHM: regular rhythm HEART SOUNDS: S1 normal heart sound present and S2 normal heart sound present GI: COMMON NORMALS: Normal to inspection, nondistended, normoactive bowel soun ds present, Soft to palpation and non-tender PALPATION: Yes Soft to palpation Back/Pelvis: OTHER: Spinal drain Extremity: COMMON NORMALS: no joint enlargement and no pedal edema Neuro: COMMON NORMALS: patient oriented x3 and moves all extremities SEN SORIUM/ORIENTATION: Yes alert Skin: COMMON NORMALS: no rashes or lesions noted GENERAL SKIN EXAM: no rashes or lesions noted Urinary Catheter Management^: F: Cath Placed During This Visit: yes, but has since been removed by the nurse Urinary Catheter Date of Insertion: 06/05/21 Urinary Catheter Time of Insertion: 10:50 Date Urinary Catheter Removed: 06/05/21 Time Urinary Catheter Discontinued: 16:05 Data : 06/06/21 02:11 06/06/21 02:11 A&P Assessment and plan (1) Hypotension: This morning hypotension, multifactorial with blood pressure medications, pain medications, acute blood loss anemia. Responded well to small bolus 250 mL saline. For now maintain bedrest, monitor blood pressures. Hold antihypertensives, HCTZ, metoprolol. Monitor blood pressures in the hospital. Status: Acute (2) Postural kyphosis of lumbar region: Recovering after surgery 06/05. Straight cath. [place] may need to be replaced in case of retention. Recheck hemoglobin with acute anemia. Status: Acute (3) Urinary retention: Over 200 mL noted on bladder scan. Straight cath as needed, [place] will be left in in case of 300 mL or more. UA. Status: Acute Additional A&P Information COPD: On chronic 4 L of oxygen. Continue. Not in exacerbation. LUIS ANTONIO: Continue nightly CPAP CAD status post stenting: Continue Plavix, beta-dwight, statin. Has no chest pain. HTN: Blood pressure elevated after surgery, denies pain at this time, did not yet resume oral intake. Received 5 mg IV hydralazine x1. Continue metoprolol, monitor blood pressures. GERD: Continue PPI RLS: Continue ropinirole Attestations Medical Necessity Statement*: Continue hospitalization for postoperative care after back surgery, hypotensive episode, assessment of urinary retention, reassessment of acute anemia. Coding Level of Care Code Acute Nanoelectronics Engineer for Mohit Soto Diagnoses Hypotension I95.9 Postural kyphosis of lumbar region M40.05 Urinary retention R33.9
[2021-06-07] VITALS (11 sets, daily range): BP systolic 126–152; BP diastolic 55–75; PULSE 67–109; RESP 16–20; TEMP 36.5–36.9; O2SAT 94–97
[2021-06-07] MEDS: alum-mag-hydroxide-sime 30 mL UDC PO ×3 (01:08→23:34)
[2021-06-07] MEDS: HYDROcodone-acetaminophen 5-325 mg Tablet PO ×3 (01:11→11:05)
[2021-06-07 02:49] LABS: Basophils % 0.3 %; Eosinophils % 0.1 %; Hematocrit 25.4 % (37.0-47.0); Hemoglobin 7.8 g/dL (11.5-15.3); Mean Corpuscular HGB Conc 30.7 g/dL (30.0-36.0); Mean Corpuscular Hemoglobin 29.4 pg (28.0-34.0); Mean Corpuscular Volume 95.8 fL (81-99); Mean Platelet Volume 10.8 fL (7.4-10.4); Monocytes # 0.5 10^3/uL (0.2-0.9); Monocytes % 4.8 %; Neutrophils # 9.25 10^3/uL (1.8-7.7); Neutrophils % 85.4 %; Nucleated Red Blood Cells % 0 %; Platelet Count 235 10^3/cmm (130-400); Red Blood Count 2.65 10^6/uL (4.1-5.3); Red Cell Distribution Width 12.9 % (12.1-15.1); White Blood Count 10.8 10^3/uL (4.0-10.0)
[2021-06-07 03:13] LABS: Anion Gap 10.6 (5-19); Blood Urea Nitrogen 21 mg/dL (8-23); Calcium 8.5 mg/dL (8.5-10.5); Carbon Dioxide 28 mmol/L (22-29); Chloride 104 mmol/L (98-107); Creatinine Clr Calc Pharmacy 33.5813; Glomerular Filtration Rate 40.7 mL/min (90-130); Glucose 114 mg/dL (65-115); Osmolality Calculated 290 mOsm/kg (285-295); Potassium 4.6 mmol/L (3.5-5.1); Sodium 138 mmol/L (136-145)
[2021-06-07] MEDS: ondansetron 2 mg/ML SDV 2 mL 4 MG IVP (04:01)
[2021-06-07] MEDS: lactated ringers 1,000 ML 90 ML IV ×2 (04:01→14:41)
--- NOTE | 2021-06-07 07:14 | PC.NURSE ---
pt retaining approx. 650 ml of urine per bladder scanner. orders received to straight cath x 1 and 675 ml of clear yellow urine received. pt tolerated well.
--- NOTE | 2021-06-07 07:17 | PC.RESP ---
PULMONARY REHAB INFORMATION SENT TO PATIENT.
--- NOTE | 2021-06-07 08:07 | P.PN_ITS ---
Subjective Subjective: Interval history: Pain is controlled. At this point patient numbness in her leg is improved. She is having issues with not being able to go the bathroom. This is likely from anesthesia. Vitals/I&O/Wt Last Vital Signs Temp 97.9 F 06/07/21 04:40 Pulse 68 06/07/21 07:57 Resp 18 06/07/21 07:54 BP 133/55 06/07/21 04:40 Pulse Ox 97 06/07/21 07:54 06/06/21 06/07/21 06/07/21 22:59 06:59 14:59 Intake Total 1215 / 1945 1120 / 3065 Output Total 225 / 725 675 / 675 Balance 990 / 1220 1120 / 2340 -675 / -675 Physical Exam Narrative: EXAM NARRATIVE: 5-5 strength bilateral lower extremities. She is able to get up out of bed yesterday. And walk around. Urinary Catheter Management^: F: Cath Placed During This Visit: yes, but has since been removed by the nurse Urinary Catheter Date of Insertion: 06/05/21 Urinary Catheter Time of Insertion: 10:50 Date Urinary Catheter Removed: 06/05/21 Time Urinary Catheter Discontinued: 16:05 Data : 06/07/21 02:15 06/07/21 02:15 A&P Assessment and plan (1) Postural kyphosis of lumbar region: Postop day #2 for T10 to pelvis revision. Up with PT today. If she continues to have urinary issues. We will likely put a [place] in and she can follow-up with urology on an outpatient basis. Plan will be to discharge patient tomorrow. Status: Acute Attestations Medical Necessity Statement*: Patient needs physical therapy. And is having issues with difficulties with urination. Coding Level of Care Code Acute Unclaimed Property Officer for Mohit Soto Diagnoses Postural kyphosis of lumbar region M40.05
[2021-06-07] MEDS: ropinirole 1 mg Tablet PO (09:47)
[2021-06-07] MEDS: duloxetine 30 mg Capsule PO (09:47)
[2021-06-07] MEDS: atorvastatin 40 mg Tablet 80 MG PO (09:47)
[2021-06-07] MEDS: pantoprazole DR 40 mg Tablet PO (09:48)
[2021-06-07] MEDS: clopidogrel 75 mg Tablet PO (09:48)
[2021-06-07] MEDS: docusate sodium 100 mg Capsule PO ×2 (09:48→18:15)
--- NOTE | 2021-06-07 11:17 | PC.CHAP ---
Pastoral Care Encounter/Spiritual Assessment Type of Contact [] Declined voucher clerk visit [] Patient/Family/Request visit [] Outpatient visit [] Follow-up visit [] Physician referral [] Code/Alert [x] Routine visit [] Staff referral [] Actively dying [] Patient sleeping [] Family support [] [] Out of room [] Palliative care [] [x] Receiving care in room [] Pre-surgical visit [] Trauma [x] Long length of stay [] ICU visit [] Other: Relational/Emotional Strength [x] Patient feels connected with others/family/visitors/staff [] Distress [] Loneliness/isolation [] Abandonment Spirituality of Patient [x] Person of Tonja [] Attends Baptist of their Tonja [x] Believes in Prayer [] Reads Bible or Scientology materials [] There are Spiritual issues to be addressed Damage Inside Adjuster Interventions [x] Prayer [x] Active listening [x] Non-anxious presence [x] Spiritual/emotional support [] Crisis/trauma care [x] Spiritual counseling [] Bereavement support [] Provided bereavement packet [] Provided Bible/devotional materials [] Provided toy/stuffed animal, coloring book to patient or family member [] Provided Communion [] Anointing/[place] [] Salvation [x] Completed spiritual assessment [] Other: Impact on Illness or Injury [] Angry [] Fearful [] Anxious [] Often cries [] Exhaustion [] Unable to work [] Unable to attend episcopal [] Unable to walk/stand [] Unable to read [] Unable to drive [] Unable to eat/drink [] Unable to sleep [] Unable to be with family [] Patient intubated [] Other: Summary pelvis surgery feels good will go have to rehab going home for recovery has a good attitude Time spent with patient 10 mins
[2021-06-07 14:39] LABS: Glucose Urine UA Norm (Normal); Ketones Urine Negative (Negative); Nitrate Urine Negative (Negative); Protein Urine Neg (Negative); Urine Appearance Clear (CLEAR); Urine Color Yellow (Yellow); pH Urine 5 (5-7)
[2021-06-07] MEDS: morphine 4 mg/mL SDV 1 mL 2 MG IVP ×2 (14:39→21:34)
[2021-06-07 14:40] LABS: Add Urine Microscopic? YES; Bilirubin Urine Neg (Negative); Blood Urine 2+ (Negative); Leukocyte Esterase Urine Negative (Negative); RBC Urine 0-4 /hpf (0-2); Urobilinogen Urine Norm (Negative)
[2021-06-07 14:41] LABS: Add Urine Culture? No
--- NOTE | 2021-06-07 15:47 | PM.PN ---
Subjective Subjective: Interval history: She is doing a bit better today. Neck pain is going away. Leg numbness improving. Still cannot urinate. Per orthospine surgery may be related to anesthesia. Discussed with her also possible relation to pain medication. If discontinuing pain medication she states would prefer to keep IV morphine and hold oral medication for now. Requested additional bladder scan. Noted on straight cath 350 mL, so [place] catheter left in. Vitals/I&O/Wt Last Vital Signs Temp 98.4 F 06/07/21 10:33 Pulse 109 H 06/07/21 10:33 Resp 17 06/07/21 14:39 BP 152/75 06/07/21 10:33 Pulse Ox 94 06/07/21 10:33 06/07/21 06/07/21 06/07/21 06:59 14:59 22:59 Intake Total 1120 / 3065 1670 / 1670 Output Total 675 / 675 Balance 1120 / 2340 995 / 995 Physical Exam Const: COMMON NORMALS: no acute distress, patient oriented x3 and alert GENERAL APPEARANCE: anxious ORIENTATION/CONSCIOUSNESS: Yes awake HENMT: COMMON NORMALS: oropharynx normal Neck/C-Spine: COMMON NORMALS: no JVD Resp: COMMON NORMALS: normal respiratory effort and clear to auscultation bilaterally AUSCULTATION: clear to auscultation bilaterally Cardio: COMMON NORMALS: no JVD, regular rhythm, S1 normal heart sound present, S2 normal heart sound present and No murmurs present (Cardio) RHYTHM: regular rhythm HEART SOUNDS: S1 normal heart sound present and S2 normal heart sound present GI: COMMON NORMALS: Normal to inspection, nondistended, normoactive bowel sounds present, Soft to palpation and non-tender PALPATION: Yes Soft to palpation Back/Pelvis: OTHER: Spinal drain Extremity: COMMON NORMALS: no joint enlargement and no pedal edema Neuro: COMMON NORMALS: patient oriented x3 and moves all extremities SENSORIUM/ORIENTATION: Yes alert Skin: COMMON NORMALS: no rashes or lesions noted GENERAL SKIN EXAM: no rashes or lesions noted Urinary Catheter Management^: F: Cath Placed During This Visit: yes, but has since been removed by the nurse Urinary Catheter Date of Insertion: 06/07/21 Urinary Catheter Time of Insertion: 14:22 Date Urinary Catheter Removed: 06/05/21 Time Urinary Catheter Discontinued: 16:05 Data : 06/07/21 02:15 06/07/21 02:15 A&P Assessment and plan (1) Hypotension: Resolved with small bolus and holding of antihypertensives. Monitor. Status: Acute (2) Urinary retention: On repeat bladder scan, straight cath 350 mL came out, [place] left in. Monitor as recovering from anesthesia. Consider repeat voiding trial in several days. Caution with pain medications which may be contributing. Decrease duloxetine dose in case contributing. UA requested for any signs of UTI, unremarkable. Status: Acute (3) Postural kyphosis of lumbar region: Recovering after surgery 06/05. [place] to be replaced. Acute anemia, hemoglobin down to 7.8. Recheck. Status: Acute Additional A&P Information COPD: On chronic 4 L of oxygen. Continue. Not in exacerbation. LUIS ANTONIO: Continue nightly CPAP CAD status post stenting: Continue Plavix, beta-dwight, statin. Has no chest pain. HTN: Blood pressures transiently hypotensive due to which antihypertensives were held. GERD: Continue PPI RLS: Continue ropinirole Attestations Medical Necessity Statement*: Continue admission for assessment and management spine surgery, monitoring blood pressure after transient hypotension, optimization of pain control and medication changes with urinary retention. Coding Level of Care Code Acute Machine Bender for Mohit Soto Diagnoses Hypotension I95.9 Urinary retention R33.9 Postural kyphosis of lumbar region M40.05
[2021-06-08] VITALS (21 sets, daily range): BP systolic 98–161; BP diastolic 55–78; PULSE 92–120; RESP 14–20; TEMP 36.5–37.2; O2SAT 93–100
[2021-06-08] MEDS: HYDROcodone-acetaminophen 5-325 mg Tablet PO ×3 (00:42→21:43)
[2021-06-08] MEDS: lactated ringers 1,000 ML 90 ML IV ×2 (01:27→12:35)
[2021-06-08 02:53] LABS: Basophils % 0.2 %; Eosinophils # 0.1 10^3/uL (0.0-0.8); Eosinophils % 0.9 %; Hematocrit 22.1 % (37.0-47.0); Hemoglobin 6.8 g/dL (11.5-15.3); Lymphocytes # 0.9 10^3/uL (0.8-4.8); Lymphocytes % 10.9 %; Mean Corpuscular HGB Conc 30.8 g/dL (30.0-36.0); Mean Corpuscular Hemoglobin 29.4 pg (28.0-34.0); Mean Corpuscular Volume 95.7 fL (81-99); Mean Platelet Volume 11.1 fL (7.4-10.4); Monocytes # 0.6 10^3/uL (0.2-0.9); Monocytes % 7.2 %; Neutrophils # 6.96 10^3/uL (1.8-7.7); Neutrophils % 80.3 %; Nucleated Red Blood Cells % 0 %; Platelet Count 217 10^3/cmm (130-400); Red Blood Count 2.31 10^6/uL (4.1-5.3); Red Cell Distribution Width 12.9 % (12.1-15.1); White Blood Count 8.7 10^3/uL (4.0-10.0)
[2021-06-08 03:06] LABS: Anion Gap 9.4 (5-19); Blood Urea Nitrogen 18 mg/dL (8-23); Calcium 8.4 mg/dL (8.5-10.5); Carbon Dioxide 29 mmol/L (22-29); Chloride 100 mmol/L (98-107); Glomerular Filtration Rate 55.1 mL/min (90-130); Glucose 111 mg/dL (65-115); Osmolality Calculated 281 mOsm/kg (285-295); Potassium 4.4 mmol/L (3.5-5.1); Sodium 134 mmol/L (136-145)
[2021-06-08 03:10] LABS: Creatinine Clr Calc Pharmacy 43.6557
[2021-06-08] MEDS: morphine 4 mg/mL SDV 1 mL 2 MG IVP ×3 (03:23→14:09)
[2021-06-08] MEDS: pantoprazole DR 40 mg Tablet PO (08:13)
[2021-06-08] MEDS: duloxetine 20 mg Capsule PO (08:13)
[2021-06-08] MEDS: clopidogrel 75 mg Tablet PO (08:13)
[2021-06-08] MEDS: atorvastatin 40 mg Tablet 80 MG PO (08:14)
[2021-06-08] MEDS: ropinirole 1 mg Tablet PO (08:14)
[2021-06-08] MEDS: docusate sodium 100 mg Capsule PO ×2 (08:23→17:40)
--- NOTE | 2021-06-08 08:49 | P.DS_ITS ---
Discharge Providers Date of Admission: 06/06/21 17:03 Date of Discharge: June 08, 2021 Attending Provider at Admission: Mauricio Guerrero DO Attending Provider at Discharge: Mauricio Guerrero DO Primary Care Provider: Sienna Vora APRN Diagnoses at Discharge Discharge Diagnosis (1) Hypotension: Status: Acute (2) Urinary retention: Status: Acute (3) Postural kyphosis of lumbar region: Status: Acute Reason for Visit Reason for Visit: PLIF at L2/3 w revision K63-Znomel removal of hard Hospital Course Hospital Course Patient was admitted on 06/06/2021. She had a T10 to the pelvis fusion. She be discharged on 06/08/2021. She is having urinary retention. She will follow up with Dr. Keys in an outpatient basis. We will see her in clinic in 1 week to change her dressing. Physical Exam Narrative: EXAM NARRATIVE: Patient up walking still unable to urinate we will put a [place] in. Patient will follow up outpatient for urinary retention. Urinary Catheter Management^: F: Cath Placed During This Visit: yes, but has since been removed by the nurse Reason for Continuing Indwelling Catheter: Acute Urinary Retention or Obstruction Urinary Catheter Date of Insertion: 06/07/21 Urinary Catheter Time of Insertion: 14:22 Date Urinary Catheter Removed: 06/05/21 Time Urinary Catheter Discontinued: 16:05 Discharge Data Data Completed and Pending: Completed Studies During Hospitalization Category Date Time Status XR chest 1V tea ble 07622 Routine Exams 06/05/21 09:16 Completed XR lumbar spine 1 V 81941 Routine Exams 06/05/21 15:56 Completed Pending at discharge Category Date Time Status Leukocyte Reduced RBC Routine Lab 06/08/21 08:27 Ordered Type and Screen R outine Lab 06/08/21 08:27 Ordered Labs from last 24 hours 06/08/21 06/08/21 06/07/21 02:04 02:04 14:12 WBC 8.7 RBC 2.31 L Hgb 6.8 L Hct 22.1 L MCV 95.7 MCH 29.4 MCHC 30.8 RDW 12.9 Plt Count 217 MPV 11.1 H Neut % (Auto) 80.3 Lymph % (Auto) 10.9 [place] % (Auto) 7.2 Eos % (Auto) 0.9 Baso % (Auto) 0.2 Neut # (Auto) 6.96 Lymph # (Auto) 0.9 [place] # (Auto) 0.6 Eos # (Auto) 0.1 Baso # (Auto) 0.0 Nucleated RBC % (a uto) 0 Nucleated RBCs # 0.0 Sodium 134 L Potassium 4.4 Chloride 100 Carbon Dioxide 29 Anion Gap 9.4 BUN 18 Creatinine 1.0 H GFR Calculation 55.1 L Glucose 111 Calculated Osmolal ity 281 L Calcium 8.4 L Urine Color Yellow Urine Appearance Clear Urine pH 5 Ur Specific Gravit y 1.010 Urine Protein Neg Urine Glucose (UA) Norm Urine Ketones Negative Urine Blood 2+ H Urine Nitrate Negative Urine Bilirubin Neg Urine Urobilinogen Norm Ur Leukocyte Whitney ase Negative Urine RBC 0-4 H Urine WBC None Ur Squamous Epith Cells None Amorphous Sediment Not Reportable Urine Bacteria None Vitals: Last Vital Signs Temp 97.8 F 06/08/21 07:10 Pulse 92 06/08/21 08:10 Resp 17 06/08/21 08:21 BP 140/66 06/08/21 07:10 Pulse Ox 97 06/08/21 08:10 Discharge Plan Discharge Patient Disposition: Home Condition: Stable Prescriptions: New hydrocodone-acetaminophen 5-325 mg tablet 1 - 2 tab PO .Q4-6H Qty: 40 RF: 0 Continued rosuvastatin 40 mg tablet 40 mg PO DAILY RF: 0 rizatriptan 10 mg tablet 10 mg PO Q2H PRN (Reason: migraines) RF: 0 nitroglycerin 0.4 mg tablet, sublingual 0.4 mg sublingual Q5M PRN (Reason: Chest Pain) RF: 0 zolpidem [Ambien] 10 mg tablet 10 mg PO DAILY RF: 0 pantoprazole 40 mg tablet,delayed release (DR/EC) 40 mg PO DAILY RF: 0 duloxetine 30 mg capsule,delayed release(DR/EC) 30 mg PO DAILY RF: 0 clopidogrel 75 mg tablet 75 mg PO DAILY RF: 0 metoprolol durham-hydrochlorothiaz 100-12.5 mg tablet extended release 24 hr 1 tab PO DAILY RF: 0 budesonide-formoterol 80-4.5 mcg/actuation HFA aerosol inhaler 2 puff inhalation BID RF: 0 albuterol sulfate 90 mcg/actuation HFA aerosol inhaler 2 puff inhalation Q6H PRN (Reason: shortness of breath) RF: 0 ropinirole 1 mg Tablet 1 mg PO DAILY RF: 0 Discharge Orders: Discharge Order (Routine); Ordered 06/08/21 Ordered By: Mauricio Guerrero Discharge Diet: Advance as tolerated Discharge Activity: Limit activity as instructed Patient Instructions: Opioid Safety Activity Restrictions/Additional Instructions: Thank you for [facility] for your care! The following is a list of instructions, from your provider, to follow upon your discharge to ensure you have the optimal recovery from your recent injury orsurgery. Follow-up care is a bolaños part of your treatment and safety. Be sure to make and go to all appointments, and call your doctor if you are having problems. If you do not already have a follow-up appointment made, call Dr. Guerrero office in the next 1-3 days to make follow up appointment for 1 weeks at [phone]. It is also a good idea to know your test results and keep a list of the medicines you take. Medications will be prescribed for you at your provider's discretion. These medications are to be used as instructed; if they are taken more often that prescribed they will not be refilled early and in most cases will not be refilled at all. > When a refill is needed,you should contact celso ocampo 2-3 business days before your prescription runs out. Medications will NOT be refilled by ornamental iron worker apprentice providers after hours! > Many pain medications contain Tylenol (Acetaminophen). Do not consume more than 4,000 mg of Tylenol per day in total with any combination ofmedications. > Pain medications can cause constipation. Please use an over the counter stool softener as directed, while taking pain medications. Consulty our local pharmacist with questions or recommendations on stool softeners. If constipation persists, contact our office or your primary care provider. > While under our care,you are not to receive pain medications or other controlled substances from any other provider unless our office is notified and approves. Any attempts to do so will result in refusal to prescribe any further pain medications and possible dismissal from our practice. ? > The wound should be examined twice a day for signs of infection. Mild redness or bruising is to be expected but indications that an infection maybe starting would include; An increase in redness, swelling, or discharge, a foul odor present around the incision, and/or a fever greater than 101 ?F ? Showering is permitted, however we ask that you do not take a bath, sit in a whirlpool / Jacuzzi, or go swimming for 1 month. For only the first 2 days after surgery, lt wilt be necessary for you to cover your wound/dressing with plastic and tape to keep it dry. ? Walking is essential for the healing process after surgery. We would like you to slowly advance your walking. This should be done on relatively flat clear ground (inside or out) or can be done on a treadmill. Remember this goal does not have to happen all at once, slowly increase your d istance and duration. This can be broken into more more than one walk per day as tolerated. Patients who walk as directed after surgery rarely require Physical Therapy. In the unlikely event this issue arises your provider will direct hospital staff to make the appropriate arrangements. ? No lifting over 5 pounds {a gallon of milk) or bending/twisting until further notice. Each of these activities places an unnecessary amount of stress onto the body and can impede the delicate healing process. > Instead of bending at the waist, keep your back straight and bend at the knees. > Instead of twisting your torso, keep your back straight and turn your entire body with your feet. ? You may sleep in any position which makes you comfortable. Many patients find comfort sleeping in a reclining chair. It is not abnormal to have difficulty sleeping for the first several weeks following your surgery. We recommend trying Benadry! or Tylenol PM as directed to help with your sleeping difficulties. Both medications are over the counter and available withoutprescription. ? NO SMOKING!!! Smoking dramatically increases the probability of developing postoperative wound infections. ? Common complaints after lumbar and/or thoracic spine surgery include, but are not limited to: numbness and/or tingling in the legs, pain around the incision and surrounding tissues, muscle spasms, or stiffness of the middle to low back. Contact our office if these symptoms persist or if an acute change occurs. ? No driving for the first 3-5days, and not while taking narcotics [] until seen at your follow-up appointment and cleared. There are no restrictions for riding on short trips, however if you take a longer trip, arrangements should be made to make regular stops to get out of the vehicle and stretch . ? Swelling is an unfortunate event that will take place with any surgery and is the primary source of your postoperative discomfort. While walking and regular approved activities helps control inflammation, there are additional steps you can take to minimizeswelling. > Place ice over the surgical site and surrounding tissue for twenty minutes, followed by applying a low/medium heat (heating pad) for an additional twenty minutes every 1-2 hours as needed for painrelief. > You may use of over the counter anti-inflammatory medications (Ibuprofen, Motrin, Aleve, Advil, etc) as directed on the package label. These types of medicines wm significantly reduce the amount of discomfort you experience after surgery from swelling. It should be noted that if you have and allergy to any of these medications, or a history of ulcers or kidney disease you should consult you primary care provider prior to starting these medications. Discharge Attestations Time Spent in Discharge Care*: less than 30 min Quality Metrics Clinical Quality Measures During this hospital stay, did patient experience: None Coding Level of Care Code Acute Chg FW [place] note Diagnoses Hypotension I95.9 Urinary retention R33.9 Postural kyphosis of lumbar region M40.05
[2021-06-08] MEDS: alum-mag-hydroxide-sime 30 mL UDC PO (10:55)
[2021-06-08] MEDS: psyllium powder Pkt 1 PACKET PO (13:25)
[2021-06-08] MEDS: cyclobenzaprine 10 mg Tablet 5 MG PO (15:44)
--- NOTE | 2021-06-08 17:49 | PM.PN ---
Subjective Subjective: Interval history: Today she is doing better overall. Denies shortness of breath. Denies chest pain. She states she has a blood pressure cuff at home and measures her blood pressures regularly. Vitals/I&O/Wt Last Vital Signs Temp 98.3 F 06/08/21 17:08 Pulse 113 H 06/08/21 17:08 Resp 18 06/08/21 16:08 BP 139/64 06/08/21 17:08 Pulse Ox 100 06/08/21 17:08 06/08/21 06/08/21 06/08/21 06:59 14:59 22:59 Intake Total 969 / 3359 1350 / 1350 0 / 1350 Output Total 1200 / 2225 1300 / 1300 Balance -231 / 1134 50 / 50 0 / 50 Physical Exam Const: COMMON NORMALS: no acute distress, patient oriented x3 and alert GENERAL APPEARANCE: cooperative and comfortable ORIENTATION/CONSCIOUSNESS: Yes awake HENMT: COMMON NORMALS: oropharynx normal Neck/C-Spine: COMMON NORMALS: no JVD Resp: COMMON NORMALS: normal respiratory effort and clear to auscultation bilaterally AUSCULTATION: clear to auscultation bilaterally Cardio: COMMON NORMALS: no JVD, regular rhythm, S1 normal heart sound present, S2 normal heart sound present and No murmurs present (Cardio) RHYTHM: regular rhythm HEART SOUNDS: S1 normal heart sound present and S2 normal heart sound present GI: COMMON NORMALS: Normal to inspection, nondistended, normoactive bowel sounds present, Soft to palpation and non-tender PALPATION: Yes Soft to palpation Extremity: COMMON NORMALS: no joint enlargement and no pedal edema Neuro: COMMON NORMALS: patient oriented x3 and moves all extremities SENSORIUM/ORIENTATION: Yes alert Skin: COMMON NORMALS: no rashes or lesions noted GENERAL SKIN EXAM: no rashes or lesions noted Urinary Catheter Management^: F: Cath Placed During This Visit: yes, but has since been removed by the nurse Reason for Continuing Indwelling Catheter: Acute Urinary Retention or Obstruction Urinary Catheter Date of Insertion: 06/07/21 Urinary Catheter Time of Insertion: 14:22 Date Urinary Catheter Removed: 06/05/21 Time Urinary Catheter Discontinued: 16:05 Data : 06/08/21 02:04 06/08/21 02:04 A&P Assessment and plan (1) Hypotension: Transient hypotension after surgery resolved with bolus of fluid, holding antihypertensives. Partially likely related to pain medications in addition to antihypertensives. Acute blood loss anemia. At discharge antihypertensives are restarted but she is asked to take half tablet instead of usual dose, and is instructed to monitor blood pressures closely. She understands in case blood pressures remain elevated to then resume her usual dosing. Please follow-up blood pressures and antihypertensive regimen in the office. Status: Acute (2) Acute anemia: Some downtrend of hemoglobin down to 6.8, preoperatively 11.7. Acute blood loss anemia after surgery, on aspirin, Plavix with history of CAD. Some dilutional component secondary to IV hydration. 1 unit PBC transfusion. Please follow-up blood counts at next appointment. Status: Acute (3) Urinary retention: Noted urinary retention, suspected multifactorial possibly anesthesia, pain medications. Duloxetine dose transiently decreased to 20 mg. [place] catheter left hand. Requested follow-up with urology. Please reattempt voiding trial. UA not suggestive of UTI. Status: Acute (4) Postural kyphosis of lumbar region: Recovering after surgery 06/05. [facility] arranging follow-up. Status: Acute Additional A&P Information COPD: On chronic 4 L of oxygen. Continue. Not in exacerbation. LUIS ANTONIO: Continue nightly CPAP CAD status post stenting: Continue Plavix, beta-dwight, statin. Has no chest pain. HTN: Blood pressures transiently hypotensive due to which antihypertensives were held. GERD: Continue PPI RLS: Continue ropinirole Attestations Medical Necessity Statement*: Returning home. Coding Level of Care Code Acute Training Assistant for [facility] Fwd Exam Comprehensive Diagnoses Hypotension I95.9 Acute anemia D64.9 Urinary retention R33.9 Postural kyphosis of lumbar region M40.05
[2021-06-08] MEDS: sodium chloride 0.9% (100 ml) 100 ML (18:30)
--- NOTE | 2021-06-08 22:50 | PC.NURSE ---
DISCHARGE Pt left hospital via wheelchair with Nurses aide at 2155. Daughter here to pick pt up. Was given discharge instructions and teaching on leg bag application for [place]. Requested pain med for ride home and was given po Hydrocodone at discharge. Dressing to medial back C&D on discharge
== END 2021-06-08 21:55 | disposition home or self-care (01) | DRG 454 ==
LOC: MEDSURG 17:35
PROVIDERS: Internal Medicine; Admitting Provider Orthopaedic Surgery; PCP Nurse Practitioner Adult Health; Visit Provider Orthopaedic Surgery
PROC: XRGB092 Fusion of Lumbar Vertebral Joint using Nanotextured Surface Interbody Fusion Device, Open Approach, New Technology Group 2 (ICD-10-PCS; CPT 22612; principal; 2021-06-05 11:00)
DX: M40.05 Postural kyphosis, thoracolumbar region (principal); D62 Acute posthemorrhagic anemia; Z87.891 Personal history of nicotine dependence; J44.9 Chronic obstructive pulmonary disease, unspecified; Z99.81 Dependence on supplemental oxygen; I25.10 Atherosclerotic heart disease of native coronary artery without angina pectoris; Z95.5 Presence of coronary angioplasty implant and graft; I25.2 Old myocardial infarction; I12.9 Hypertensive chronic kidney disease with stage 1 through stage 4 chronic kidney disease, or unspecified chronic kidney disease; N18.9 Chronic kidney disease, unspecified; E78.5 Hyperlipidemia, unspecified; K21.9 Gastro-esophageal reflux disease without esophagitis; G25.81 Restless legs syndrome; I71.4 Abdominal aortic aneurysm, without rupture; G56.00 Carpal tunnel syndrome, unspecified upper limb; G47.00 Insomnia, unspecified; K76.0 Fatty (change of) liver, not elsewhere classified; G47.33 Obstructive sleep apnea (adult) (pediatric); I95.9 Hypotension, unspecified; Z79.51 Long term (current) use of inhaled steroids; Z79.02 Long term (current) use of antithrombotics/antiplatelets; R33.9 Retention of urine, unspecified
CPT/HCPCS: 36415; 36430; 51702; 71045; 72020; 76000; 80048; 81001; 83735; 85025; 86850; 86900; 86920; 94640; 97110; 97161; 97530; C1713; G0378; J0360; J0690; J1100; J1170; J1644; J2250; J2270; J2370; J2405; J2704; J3010; J3370; J3490; J7050; L0174; P9016

== ENCOUNTER → 2021-07-31 10:03 | Outpatient (BNVA) | payer MEDICARE, OTHER, SELFPAY | PROVIDERS: PCP Nurse Practitioner Adult Health; Visit Provider Orthopaedic Surgery | DX: M54.5 Low back pain (principal); Z48.89 Encounter for other specified surgical aftercare; Z20.822 Contact with and (suspected) exposure to COVID-19 | CPT/HCPCS: 72100; 87635 ==

== ENCOUNTER 2021-08-03 15:14 | Observation (INO) | payer MEDICARE, OTHER, SELFPAY ==
[2021-08-02 15:53] VITALS: BMI 23.6
[2021-08-03] VITALS (14 sets, daily range): BP systolic 88–171; BP diastolic 41–77; PULSE 48–71; RESP 12–20; TEMP 36.2–36.8; O2SAT 93–100
--- NOTE | 2021-08-03 | SCC_ITS ---
Procedure Done: 1. T4-T12 PSF 2. T4-T12 Instrumentation 3. Removal of deep hardware from spine 4. Use of alllow graft 5. Use of Computer navigation/stereotactic for spine 5 seconds of fluoroscopic guidance, for a cumulative dose of 8.3 mGy, was provided to Dr. Guerrero by the radiology department. C-arm images of the lumbar spine were saved for the patient's permanent record. KATHI
--- NOTE | 2021-08-03 | XR_ITS ---
WS: [id number] C-ARM RADIOGRAPHS LUMBAR SPINE; 2 IMAGES HISTORY: EDUAR PIC COMPARISON: 06/05/2021 Extensive posterior lumbar fusion rods and screws have been placed. XR/XR lumbar spine 1V port [id number] IMPRESSION: Intraoperative imaging during lumbar spine fusion hardware placement.
--- NOTE | 2021-08-03 10:39 | W.PM.OPSUD ---
Surgery/Procedure H&P Update DATE OF PROCEDURE: August 03, 2021 DATE H&P PERFORMED: 07/31/21 H&P UPDATE INFORMATION: I have reviewed H&P completed within last 30 days, I have examined patient prior to procedure and No changes to prior documentation PREOP DIAGNOSIS: T9 compression fracture PLANNED PROCEDURE: Operation Date: 08/03/21 07:40 Proposed Procedures p PLIF revise and extend from T4-T9 arthordesis, additional segment T5-T9 instrmentation [id number]) 32190 C87.209 M96.1(Not Applicable) - Mauricio Guerrero DO
--- NOTE | 2021-08-03 11:32 | ANES.PREANE2 ---
Pre-Anesthetic Assessment Pre-Anesthetic Assessment: Height/Weight: Height 1.55 m Weight 56.699 kg Temp Pulse Resp BP Pulse Ox 97.2 F L 48 L 16 171/73 100 08/03/21 11:22 08/03/21 11:22 08/03/21 11:22 08/03/21 11:22 08/03/21 11:22 Preop Diagnosis: T9 compression fracture Proposed Procedure: Operation Date: 08/03/21 07:40 Proposed Procedures p PLIF revise and extend from T4-T9 arthordesis, additional segment T5-T9 instrmentation [id number](x4) 90577 M40.209 M96.1(Not Applicable) - Mauricio Guerrero, DO Familial anesthetic complications: None Was Beta Kian taken within 24 hours: N/A Was Clonidine taken within 24 hours: N/A Last intake: Intake Last Liquid Date 08/02/21 Last Liquid Time 23:00 Last Solid Date 08/02/21 Last Solid Time 18:00 Social: Social History: No alcohol and No tobacco Exam: Pre-Anes Outpt Exam: alert, oriented x 3, clear to auscultation bilaterally and regular rate & rhythm Airway: Cervical ROM: WNL MP: 2 Dentition: False Pulmonary: Pulmonary: COPD CV/HEM: CV/HEM: CAD (stents more than 1 year go) and PVD Comments: plavix on , patient aware GI: GI: GERD Metabolic: Metabolic: Hyperlipidemia Anesthetic Plan: ASA status: 3 Anesthesia: General Risk of > 500 ml blood loss (7ml/kg in children): No PFSH Anesthesia PFSH: Medical History AAA (abdominal aortic aneurysm) Carpal tunnel syndrome Chronic kidney disease COPD (chronic obstructive pulmonary disease) Coronary atherosclerosis GERD (gastroesophageal reflux disease) HTN (hypertension) Insomnia Migraine Non-alcoholic fatty liver disease Surgical History History of cataract removal with insertion of prosthetic lens History of cholecystectomy History of foot surgery History of heart artery stent History of intestinal surgery Hx of appendectomy Hx of tonsillectomy Previous back surgery Family History Other No significant family history Social History Smoking and tobacco status: former smoker Alcohol intake: never Lives independently: Yes Household members: spouse Marital status: Current occupational status: retired Data Anesthesia Cardiac Studies: No Data to Display
[2021-08-03] MEDS: sodium chloride 0.9% 1,000 ML 30 ML IV (11:33)
[2021-08-03] MEDS: scopolamine 1.5 Patch 1 PATCH TRANSDERMA (11:38)
[2021-08-03 11:49] LABS: Basophils % 0.5 %; Eosinophils # 0.3 10^3/uL (0.0-0.8); Eosinophils % 3.9 %; Hematocrit 38.7 % (37.0-47.0); Hemoglobin 11.8 g/dL (11.5-15.3); Lymphocytes # 1.4 10^3/uL (0.8-4.8); Lymphocytes % 16.3 %; Mean Corpuscular HGB Conc 30.5 g/dL (30.0-36.0); Mean Corpuscular Hemoglobin 28.2 pg (28.0-34.0); Mean Corpuscular Volume 92.6 fl (81-99); Mean Platelet Volume 10.7 fL (7.4-10.4); Monocytes # 0.3 10^3/uL (0.2-0.9); Monocytes % 3.7 %; Neutrophils # 6.64 10^3/uL (1.8-7.7); Neutrophils % 75.4 %; Nucleated Red Blood Cells % 0 %; Platelet Count 410 10^3/cmm (130-400); Red Blood Count 4.18 10^6/uL (4.1-5.3); Red Cell Distribution Width 13.2 % (12.1-15.1); White Blood Count 8.8 10^3/uL (4.0-10.0)
[2021-08-03 12:24] LABS: Blood Urea Nitrogen 13 mg/dL (8-23); Calcium 9.6 mg/dL (8.5-10.5); Carbon Dioxide 22 mmol/L (22-29); Chloride 104 mmol/L (98-107); Glomerular Filtration Rate 55.1 mL/min (90-130); Glucose 73 mg/dL (65-115); Osmolality Calculated 287 mOsm/kg (285-295); Sodium 139 mmol/L (136-145)
[2021-08-03 12:33] LABS: Creatinine Clr Calc Pharmacy 43.6557
[2021-08-03 12:35] LABS: Anion Gap 17.6 (5-19); Potassium 4.6 mmol/L (3.5-5.1)
[2021-08-03] MEDS: vancomycin 1,000 MG SDV 2000 MG XX (12:45)
--- NOTE | 2021-08-03 16:13 | PM.OP ---
Operative Report Date of procedure: August 03, 2021 Pre-op Diagnosis: T9 compression fracture Post-op diagnosis: same Procedure Done: 1. T4-T12 PSF 2. T4-T12 Instrumentation 3. Removal of deep hardware from spine 4. Use of alllow graft 5. Use of Computer navigation/stereotactic for spine Surgeon: Mauricio Guerrero Anesthesia: General Estimated blood loss (mL): 200 Condition: stable Disposition: PACU Procedure: 1. T4-T12 PSF 2. T4-T12 Instrumentation 3. Removal of deep hardware from spine 4. Use of alllow graft 5. Use of Computer navigation/stereotactic for spine Patient is brought to the operative suite after undergoing anesthesia was placed in the prone position all areas impingement well-padded. Patient is then prepped and draped normal sterile fashion. Skin incision made over the thoracic spine proximal to the previous incision that was made. Then approximately 6 inches into the previous incision. The thoracolumbar fascia was split subperiosteal dissection was made from T4 down to the previous construct. This stopped at T9. The screws from T9-T12 are identified. The T9 screws were removed. There were taken out bilaterally. After the end caps were removed and caps remove from the top 4 screws bilaterally. The right T10 and right T12 screws were removed. Once this is completed then the fiducial for the computer navigation was attached to the spinous process at about the T12 level. The C-arm was then used to spin in order to facilitate using computer navigation. The information was loaded into the computer. Next attention is brought to placing pedicle screws. There were screws placed at T4-T5 T6-T7-T8 on the left side. And then T5-T8 on the right side. Screws were placed using computer navigation. This was done by using [employer] and has computer navigation followed by the ball probe followed by placing the pedicle screws using the navigation. [place]air was measured. And then a juliocesar connector was used and and and connected onto the left and right rods. And caps and screws for the juliocesar connectors were all torqued down. AP lateral fluoroscopy ensured that the hardware is in preposition. Next bone was decorticated from T4 down to T12. This was used a high-speed bur. Then the osteoamp bone graft was then packed along the lamina from T4 down to T12. Vancomycin powder was then used and then a deep drain was placed and then the wound was closed in a layered fashion with 0 Vicryl oh Stratus fix 2-0 Vicryl 2 oh Stratus fix and nylon suture. Silverlon dressing was then used and patient was transferred to the PACU in stable condition.
[2021-08-03] MEDS: HYDROcodone-acetaminophen 5-325 mg Tablet PO ×2 (17:16→22:50)
[2021-08-03] MEDS: docusate sodium 100 mg Capsule PO (17:16)
[2021-08-03] MEDS: lactated ringers 1,000 ML 90 ML IV (17:17)
[2021-08-03] MEDS: alum-mag-hydroxide-sime 30 mL UDC PO (18:32)
--- NOTE | 2021-08-03 18:39 | PC.NURSE ---
We had difficult getting her pulse oxy to read.
--- NOTE | 2021-08-03 21:47 | ECG_ITS ---
[facility] Test Date: 2021-08-03 Pat Name: Estefany Neumann Department: Room: 267 Gender: Female Hr Intern: : 1955 Requested By: Mauricio Forman Order Number: [id number] Reading MD: ZAHIDA CARROLL Measurements Intervals [place] Rate: 56 P: 47 AK: 171 QRS: -14 QRSD: 86 T: -7 QT: 442 QTc: 428 Interpretive Statements SINUS BRADYCARDIA Compared to ECG 05/29/2021 12:15:49 Myocardial infarct finding no longer present T-wave abnormality no longer present Electronically Signed On 08-04-2021 20:15:42 CDT by ZAHIDA CARROLL [email or web address] LLCmagr[facility].[employer]/store/[id number]
[2021-08-03 23:15] LABS: Troponin T (5th) Once 41 ng/L (0-10)
[2021-08-04] VITALS (10 sets, daily range): BP systolic 137–178; BP diastolic 53–77; PULSE 64–77; RESP 16–18; TEMP 36.3–36.7; O2SAT 93–98
[2021-08-04] MEDS: HYDROcodone-acetaminophen 5-325 mg Tablet PO ×3 (03:47→20:36)
[2021-08-04] MEDS: lactated ringers 1,000 ML 90 ML IV ×2 (03:48→16:06)
--- NOTE | 2021-08-04 06:44 | PC.NURSE ---
Hemovac Drain emptied 90mL
[2021-08-04] MEDS: albuterol 8 gm MDI 2 PUFF INHALATION ×2 (08:03→22:05)
--- NOTE | 2021-08-04 09:49 | PM.DCS ---
Discharge Providers Date of Admission: 08/03/21 15:14 Date of Discharge: August 04, 2021 Attending Provider at Admission: Mauricio Guerrero DO Attending Provider at Discharge: Mauricio Guerrero DO Primary Care Provider: ADRIANA Daniel Reason for Visit Reason for Visit: Kyphosis, postlaminectomy syndrome Hospital Course Hospital Course Patient was admitted on 08/03/21 and discharged on 08/04/21. Hospital stay was uneventful. Physical Exam Narrative: EXAM NARRATIVE: sitting up in chair ambulating Urinary Catheter Management^: [place]: Cath Placed During This Visit: yes Reason for Continuing Indwelling Catheter: Required Immobilization for Trauma or Surgery or Anesthesia Urinary Catheter Date of Insertion: 08/03/21 Urinary Catheter Time of Insertion: 12:00 Discharge Data Data Completed and Pending: Pending at discharge Category Date Time Status C-arm Fluoroscopy [id number] Routine Exams 08/03/21 10:39 Taken Labs from last 24 hours 08/03/21 08/03/21 08/03/21 22:20 11:14 11:14 WBC 8.8 RBC 4.18 Hgb 11.8 Hct 38.7 MCV 92.6 MCH 28.2 MCHC 30.5 RDW 13.2 Plt Count 410 H MPV 10.7 H Neut % (Auto) 75.4 Lymph % (Auto) 16.3 [place] % (Auto) 3.7 Eos % (Auto) 3.9 Baso % (Auto) 0.5 Neut # (Auto) 6.64 Lymph # (Auto) 1.4 [place] # (Auto) 0.3 Eos # (Auto) 0.3 Baso # (Auto) 0.0 Nucleated RBC % (a uto) 0 Nucleated RBCs # 0.0 Sodium 139 Potassium 4.6 Chloride 104 Carbon Dioxide 22 Anion Gap 17.6 BUN 13 Creatinine 1.0 H GFR Calculation 55.1 L Glucose 73 Calculated Osmolal ity 287 Calcium 9.6 Troponin T Gen 5 n g/L 41 H Vitals: Last Vital Signs Temp 97.7 F 08/04/21 08:00 Pulse 70 08/04/21 08:04 Resp 18 08/04/21 08:04 BP 174/64 08/04/21 08:00 Pulse Ox 96 08/04/21 08:04 Discharge Plan Discharge Patient Disposition: Home Condition: Stable Prescriptions: New hydrocodone-acetaminophen 5-325 mg tablet 1 - 2 tab PO .Q4-6H Qty: 40 RF: 0 Continued rosuvastatin 40 mg tablet 40 mg PO DAILY RF: 0 rizatriptan 10 mg tablet 10 mg PO Q2H PRN (Reason: migraines) RF: 0 nitroglycerin 0.4 mg tablet, sublingual 0.4 mg sublingual Q5M PRN (Reason: Chest Pain) RF: 0 pantoprazole 40 mg tablet,delayed release (DR/EC) 40 mg PO DAILY RF: 0 duloxetine 30 mg capsule,delayed release(DR/EC) 30 mg PO DAILY RF: 0 clopidogrel 75 mg tablet 75 mg PO DAILY RF: 0 metoprolol durham-hydrochlorothiaz 100-12.5 mg tablet extended release 24 hr 0.5 tab PO DAILY RF: 0 budesonide-formoterol 80-4.5 mcg/actuation HFA aerosol inhaler 2 puff inhalation BID RF: 0 albuterol sulfate 90 mcg/actuation HFA aerosol inhaler 2 puff inhalation Q6H PRN (Reason: shortness of breath) RF: 0 (DME) TLSO back brace See Rx Instructions .Route .MEDSUPPLY Qty: 1 RF: 0 ropinirole 1 mg Tablet 1 mg PO DAILY RF: 0 Discharge Orders: Discharge Order (Routine); Ordered 08/04/21 Ordered By: Mauricio Guerrero Discharge Diet: Advance as tolerated Discharge Activity: Limit activity as instructed Patient Instructions: Opioid Safety Activity Restrictions/Additional Instructions: Thank you for [facility] for your care! The following is a list of instructions, from your provider, to follow upon your discharge to ensure you have the optimal recovery from your recent injury orsurgery. Follow-up care is a bolaños part of your treatment and safety. Be sure to make and go to all appointments, and call your doctor if you are having problems. If you do not already have a follow-up appointment made, call Dr. Guerrero office in the next 1-3 days to make follow up appointment for 1 weeks at [phone]. It is also a good idea to know your test results and keep a list of the medicines you take. Medications will be prescribed for you at your provider's discretion. These medications are to be used as instructed; if they are taken more often that prescribed they will not be refilled early and in most cases will not be refilled at all. > When a refill is needed,you should contact celso ocampo 2-3 business days before your prescription runs out. Medications will NOT be refilled by longwall shearer operator providers after hours! > Many pain medications contain Tylenol (Acetaminophen). Do not consume more than 4,000 mg of Tylenol per day in total with any combination ofmedications. > Pain medications can cause constipation. Please use an over the counter stool softener as directed, while taking pain medications. Consulty our local pharmacist with questions or recommendations on stool softeners. If constipation persists, contact our office or your primary care provider. > While under our care,you are not to receive pain medications or other controlled substances from any other provider unless our office is notified and approves. Any attempts to do so will result in refusal to prescribe any further pain medications and possible dismissal from our practice. ? KEEP DRESSING ON AT ALL TIMES ? Showering is permitted, however we ask that you do not take a bath, sit in a whirlpool / Jacuzzi, or go swimming for 1 month. For only the first 2 days after surgery, lt wilt be necessary for you to cover your wound/dressing with plastic and tape to keep it dry. ? Walking is essential for the healing process after surgery. We would like you to slowly advance your walking. This should be done on relatively flat clear ground (inside or out) or can be done on a treadmill. Remember this goal does not have to happen all at once, slowly increase your distance and duration. This can be broken into more more than one walk per day as tolerated. Patients who walk as directed after surgery rarely require Physical Therapy. In the unlikely event this issue arises your provider will direct hospital staff to make the appropriate arrangements. ? No lifting over 5 pounds {a gallon of milk) or bending/twisting until further notice. Each of these activities places an unnecessary amount of stress onto the body and can impede the delicate healing process. > Instead of bending at the waist, keep your back straight and bend at the knees. > Instead of twisting your torso, keep your back straight and turn your entire body with your feet. ? You may sleep in any position which makes you comfortable. Many patients find comfort sleeping in a reclining chair. It is not abnormal to have difficulty sleeping for the first several weeks following your surgery. We recommend trying Benadry! or Tylenol PM as directed to help with your sleeping difficulties. Both medications are over the counter and available withoutprescription. ? NO SMOKING!!! Smoking dramatically increases the probability of developing postoperative wound infections. ? Common complaints after lumbar and/or thoracic spine surgery include, but are not limited to: numbness and/or tingling in the legs, pain around the incision and surrounding tissues, muscle spasms, or stiffness of the middle to low back. Contact our office if these symptoms persist or if an acute change occurs. ? No driving for the first 3-5days, and not while taking narcotics [] until seen at your follow-up appointment and cleared. There are no restrictions for riding on short trips, however if you take a longer trip, arrangements should be made to make regular stops to get out of the vehicle and stretch . ? Swelling is an unfortunate event that will take place with any surgery and is the primary source of your postoperative discomfort. While walking and regular approved activities helps control inflammation, there are additional steps you can take to minimizeswelling. > Place ice over the surgical site and surrounding tissue for twenty minutes, followed by applying a low/medium heat (heating pad) for an additional twenty minutes every 1-2 hours as needed for painrelief. > You may use of over the counter anti-inflammatory medications (Ibuprofen, Motrin, Aleve, Advil, etc) as directed on the package label. These types of medicines wm significantly reduce the amount of discomfort you experience after surgery from swelling. It should be noted that if you have and allergy to any of these medications, or a history of ulcers or kidney disease you should consult you primary care provider prior to starting these medications. Discharge Attestations Time Spent in Discharge Care*: less than 30 min Quality Metrics Clinical Quality Measures During this hospital stay, did patient experience: None Coding Level of Care Code Acute Chg FW DC note
[2021-08-04] MEDS: ALPRAZolam 0.5 mg Tablet PO (10:23)
--- NOTE | 2021-08-04 10:50 | ECG_ITS ---
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
[2021-08-04] MEDS: enoxaparin 40 mg/0.4 mL Syringe SUBCUT (10:53)
[2021-08-04] MEDS: atorvastatin 40 mg Tablet 80 MG PO (10:53)
[2021-08-04] MEDS: duloxetine 30 mg Capsule PO (10:54)
[2021-08-04] MEDS: ropinirole 1 mg Tablet PO (10:54)
[2021-08-04] MEDS: docusate sodium 100 mg Capsule PO (10:54)
[2021-08-04] MEDS: clopidogrel 75 mg Tablet PO (10:54)
[2021-08-04] MEDS: pantoprazole DR 40 mg Tablet PO (10:54)
[2021-08-04] MEDS: metoprolol succinate ER (24 HR) 50 mg Tablet PO (10:54)
[2021-08-04] MEDS: hydroCHLOROthiazide 25 mg Tablet 12.5 MG PO (10:55)
[2021-08-04 11:48] LABS: Troponin T (5th) Once 53 ng/L (0-10)
--- NOTE | 2021-08-04 12:43 | P.CONIM_ITS ---
Providers/Reason For Consult Consulting Physician/Specialty*: Internal medicine Reason for Consult*: chest pain Attending Physician: Mauricio Guerrero DO Primary Care Provider: ADRIANA Daniel History of Present Illness History of Present Illness Estefany Neumann is a 66 year old female with a past medical history significant for coronary artery disease status post multiple stents in the past who found to have a T8 compression fracture requiring surgical intervention admitted under orthopedic surgery. Postoperatively patient was doing well until she had episode of chest tightness on evening of 08/03. this had resolved. did not radiate. No associated shortness of breath or diaphoresis. EKG has not shown any evidence of acute ischemia. Troponin trend was drawn and found to be slightly elevated at 41. Medicine was consulted. Patient was comfortable at the time of my eval. Review of Systems General: Reports: 10 or more systems reviewed and unremarkable except in HPI and below Meds/Allergies Home Medications and Allergies Home Medications Medication Instructions Recorded Confirmed Last Taken Type albuterol sulfate 90 mcg/actuation 2 puff INHALATION Q6H PRN 05/15/21 08/04/21 06/04/21 History aerosol inhaler budesonide-formoterol HFA 80 2 puff INHALATION BID 05/15/21 08/04/21 06/04/21 History mcg-4.5 mcg/actuation aerosol inhaler clopidogrel 75 mg tablet 75 mg PO DAILY 05/15/21 08/04/21 07/31/21 History duloxetine 30 mg capsule,delayed 30 mg PO DAILY 05/15/21 08/04/21 08/03/21 05:30 History release nitroglycerin 0.4 mg sublingual 0.4 mg SUBLINGUAL Q5M PRN 05/15/21 08/04/21 Unknown History tablet pantoprazole 40 mg tablet,delayed 40 mg PO DAILY 05/15/21 08/04/21 08/02/21 History release rizatriptan 10 mg tablet 10 mg PO Q2H PRN 05/15/21 08/04/21 08/02/21 History rosuvastatin 40 mg tablet 40 mg PO DAILY 05/15/21 08/04/21 08/02/21 History TLSO back brace #1 ea 07/24/21 08/04/21 Unknown Rx hydrocodone-acetaminophen 1 - 2 tab PO .Q4-6H #40 tab 08/04/21 Unknown Rx metoprolol succinate 100 mg PO DAILY MDD SEE PHARMACY 08/04/21 08/04/21 Unknown History COMMENT ropinirole 5 mg PO BID 08/04/21 08/04/21 Unknown History Allergies Allergy/AdvReac Type Severity Reaction Status Date / Time meperidine [From Demerol] Allergy ADR-Migrain Verified 08/03/21 10:43 e Current Medications Current Medications Generic Name Dose Route Start Last Admin Trade Name Freq PRN Reason Stop Dose Admin Hydrocodone Bitart/Acetaminophen 1 - 2 tab 08/03/21 16:07 08/04/21 10:23 Hydrocodone-Acetaminophen 5-325 Mg Tablet PO 1 tab Q4H PRN Administration MODERATE TO SEVERE PAIN Al Hydrox/Mg Hydrox/Simethicone 30 ml 08/03/21 16:07 08/03/21 18:32 Ghmr-Lyv-Njudnbhhk-Ralph 30 Ml Udc PO 30 ml Q4H PRN Administration INDIGESTION Albuterol Sulfate 2 puff 08/03/21 16:09 08/04/21 08:03 Albuterol 8 Gm Mdi INHALATION 2 puff Q4H.RESPIRATORY PRN Administration shortness of breath Atorvastatin Calcium 80 mg 08/04/21 09:00 08/04/21 10:53 Atorvastatin 40 Mg Tablet PO 80 mg DAILY RICHIE Administration Clopidogrel Bisulfate 75 mg 08/04/21 09:00 08/04/21 10:54 Clopidogrel 75 Mg Tablet PO 75 mg DAILY RICHIE Administration Docusate Sodium 100 mg 08/03/21 18:00 08/04/21 10:54 Docusate Sodium 100 Mg Capsule PO 100 mg BID RICHIE Administration Duloxetine HCl 30 mg 08/04/21 09:00 08/04/21 10:54 Duloxetine 30 Mg Capsule PO 30 mg DAILY RICHIE Administration Enoxaparin Sodium 40 mg 08/04/21 06:00 08/04/21 10:53 Enoxaparin 40 Mg/0.4 Ml Syringe SUBCUT 40 mg Q24H RICHIE Administration Hydrochlorothiazide 12.5 mg 08/04/21 09:00 08/04/21 10:55 Hydrochlorothiazide 25 Mg Tablet PO 12.5 mg DAILY RICHIE Administration Lactated Ringer's 1,000 mls @ 90 mls/hr 08/03/21 16:15 08/04/21 03:48 Lactated Ringers IV 90 mls/hr .Q11H7M RICHIE Administration Metoprolol Succinate 50 mg 08/04/21 09:00 08/04/21 10:54 Metoprolol Succinate Er (24 Hr) 50 Mg Tablet PO 50 mg DAILY RICHIE Administration Pantoprazole Sodium 40 mg 08/04/21 09:00 08/04/21 10:[address] 40 Mg Tablet PO 40 mg DAILY RICHIE Administration Ropinirole HCl 1 mg 08/04/21 09:00 08/04/21 10:54 Ropinirole 1 Mg Tablet PO 1 mg DAILY RICHIE Administration Fluticasone/Salmeterol 1 puff 08/03/21 20:00 08/04/21 07:53 Fluticasone-Salmeterol 250-50 Diskus INHALATION 1 puff BID.RESPIRATORY RICHIE Administration PFSH Acute PFSH: Medical History AAA (abdominal aortic aneurysm) Carpal tunnel syndrome Chronic kidney disease COPD (chronic obstructive pulmonary disease) Coronary atherosclerosis GERD (gastroesophageal reflux disease) HTN (hypertension) Insomnia Migraine Non-alcoholic fatty liver disease Surgical History History of cataract removal with insertion of prosthetic lens History of cholecystectomy History of foot surgery History of heart artery stent History of intestinal surgery Hx of appendectomy Hx of tonsillectomy Previous back surgery Family History Other No significant family history Social History Smoking and tobacco status: former smoker Alcohol intake: never Lives independently: Yes Household members: spouse Marital status: Current occupational status: retired Vitals/I&O/Wt Last Vital Signs Temp 97.3 F L 08/04/21 11:44 Pulse 69 08/04/21 11:44 Resp 16 08/04/21 11:44 BP 137/53 08/04/21 11:44 Pulse Ox 96 08/04/21 11:44 08/03/21 08/04/21 08/04/21 22:59 06:59 14:59 Intake Total 360 / 1420 996.5 / 2416.5 260 / 260 Output Total 600 / 600 250 / 850 Balance -240 / 820 746.5 / 1566.5 260 / 260 Weight last 48 hrs Weight 56.699 kg Physical Exam Narrative: EXAM NARRATIVE: General : Alert, awake, oriented x 3 HEENT : Grossly unremarkable CVS: NSR Chest; nonlabored respiration Ext; no edema Urinary Catheter Management^: [place]: Cath Placed During This Visit: yes Reason for Continuing Indwelling Catheter: Required Immobilization for Trauma or Surgery or Anesthesia Urinary Catheter Date of Insertion: 08/03/21 Urinary Catheter Time of Insertion: 12:00 A&P Assessment and plan (1) Elevated troponin: Mild troponin elevation No recurrnace of CP Resumed on plavix Continued on statin 2hr troponin 53- 6hr also 53 Imdur 15 mg PO BID added to regimen Repeat EKG stable Will monitor overnight. D/w Cardiology Status: Acute Consult Attestations Medical Necessity Statement: Anticipate d/c in am if no recurrence of chest pain Time Spent in Patient Care: Greater than 35 minutes (>than 50% of time spent in counselling and/or direct pt care on unit) . Coding Level of Care Code Acute Fiber Locking Supervisor for Mohit Soto Diagnoses Elevated troponin R77.8
[2021-08-04] MEDS: isosorbide mononitrate ER 30 mg Tablet 15 MG PO ×2 (15:47→20:35)
--- NOTE | 2021-08-04 17:00 | ECG_ITS ---
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
[2021-08-04 19:21] LABS: Troponin T (5th) Once 53 ng/L (0-10)
[2021-08-04] MEDS: magnesium hydroxide 30 mL UDC PO (20:37)
[2021-08-04] MEDS: ondansetron 2 mg/ML SDV 2 mL 4 MG IVP (23:38)
[2021-08-05] VITALS: BP 152/68; PULSE 82; RESP 18; TEMP 36.7; O2SAT 98
--- NOTE | 2021-08-05 00:32 | PC.NURSE ---
patient had verbalized urge to void but unable to, physician notified and order received for straight cath, 700 ml out @2330
[2021-08-05] MEDS: lactated ringers 1,000 ML 90 ML IV (03:09)
[2021-08-05] MEDS: HYDROcodone-acetaminophen 5-325 mg Tablet PO ×2 (03:13→11:53)
[2021-08-05 04:00] VITALS: BP 161/78; PULSE 76; RESP 18; TEMP 36.8; O2SAT 97
[2021-08-05] MEDS: enoxaparin 40 mg/0.4 mL Syringe SUBCUT (06:02)
[2021-08-05 07:50] VITALS: BP 161/74; PULSE 80; RESP 17; TEMP 36.4; O2SAT 98
[2021-08-05 08:51] VITALS: PULSE 85; RESP 18; O2SAT 97
[2021-08-05] MEDS: albuterol 8 gm MDI 2 PUFF INHALATION (08:51)
--- NOTE | 2021-08-05 09:13 | PM.PN ---
Subjective Subjective: Interval history: patient has no chest pain this AM. Appreciate hospitalist consult Vitals/I&O/Wt Last Vital Signs Temp 97.6 F 08/05/21 07:50 Pulse 85 08/05/21 08:51 Resp 18 08/05/21 08:51 BP 161/74 08/05/21 07:50 Pulse Ox 97 08/05/21 08:51 08/04/21 08/05/21 08/05/21 22:59 06:59 14:59 Intake Total 60 / 1320 1234.5 / 2554.5 Output Total 820 / 820 Balance 60 / 1320 414.5 / 1734.5 Physical Exam Narrative: EXAM NARRATIVE: having some right shouler pain other [place]illo unchanged Urinary Catheter Management^: [place]: Cath Placed During This Visit: yes Reason for Continuing Indwelling Catheter: Other Urinary Catheter Date of Insertion: 08/03/21 Urinary Catheter Time of Insertion: 12:00 Data : 08/03/21 11:14 08/03/21 11:14 A&P Assessment and plan (1) Encounter for postoperative care: POD#2 Posterior spine fusion Status: Acute Attestations Medical Necessity Statement*: OK to d/c pending hospitalist evaluation this am Coding Level of Care Code Acute Dry Wall Installer for Mohit Fwgermain Diagnoses Encounter for postoperative care Z48.89
[2021-08-05] MEDS: metoprolol succinate ER (24 HR) 50 mg Tablet PO (11:45)
[2021-08-05] MEDS: isosorbide mononitrate ER 30 mg Tablet 15 MG PO (11:45)
[2021-08-05] MEDS: duloxetine 30 mg Capsule PO (11:45)
[2021-08-05] MEDS: ropinirole 1 mg Tablet PO (11:45)
[2021-08-05] MEDS: docusate sodium 100 mg Capsule PO (11:45)
[2021-08-05] MEDS: atorvastatin 40 mg Tablet 80 MG PO (11:45)
[2021-08-05] MEDS: clopidogrel 75 mg Tablet PO (11:45)
[2021-08-05] MEDS: pantoprazole DR 40 mg Tablet PO (11:45)
[2021-08-05] MEDS: hydroCHLOROthiazide 25 mg Tablet 12.5 MG PO (11:46)
[2021-08-05 11:50] VITALS: BP 146/71; PULSE 96; RESP 17; TEMP 36.4; O2SAT 94
[2021-08-05 14:12] VITALS: BP 146/71; PULSE 96; RESP 17; TEMP 36.4; O2SAT 94
--- NOTE | 2021-08-07 13:54 | PC.SOCIAL ---
discharge phone call made. patient is taking hydrocodone as needed for pain, with pain relief. patient had scheduled her follow up appointment with . Is aware to not lift more than 5 lbs and is taking a stool softener with since she is taking pain medication.
== END 2021-08-05 14:14 | disposition home or self-care (01) ==
LOC: MEDSURG 15:19
PROVIDERS: Hospitalist; Admitting Provider Orthopaedic Surgery; PCP Nurse Practitioner Family; Visit Provider Orthopaedic Surgery
PROC: (CPT 22612; principal; 2021-08-03 07:30)
DX: M48.54XA Collapsed vertebra, not elsewhere classified, thoracic region, initial encounter for fracture (principal); I25.10 Atherosclerotic heart disease of native coronary artery without angina pectoris; Z95.5 Presence of coronary angioplasty implant and graft; J44.9 Chronic obstructive pulmonary disease, unspecified; I12.9 Hypertensive chronic kidney disease with stage 1 through stage 4 chronic kidney disease, or unspecified chronic kidney disease; N18.9 Chronic kidney disease, unspecified; K21.9 Gastro-esophageal reflux disease without esophagitis; Z87.891 Personal history of nicotine dependence; R77.8 Other specified abnormalities of plasma proteins; E78.5 Hyperlipidemia, unspecified
CPT/HCPCS: 20930; 22610; 22614 ×8; 22843; 61783; 36415; 51702; 72020; 76000; 80048; 84484; 85025; 93005; 94640; 96372; 97161; C1713; G0378; J0330; J0360; J0690; J1100; J1200; J1650; J2270; J2370; J2405; J2704; J3010; J3370; J3490; J3535; J7030

== ENCOUNTER → 2021-08-16 10:34 | Outpatient (BNVA) | payer MEDICARE, OTHER, SELFPAY | PROVIDERS: PCP Nurse Practitioner Family; Visit Provider Orthopaedic Surgery | DX: Z48.89 Encounter for other specified surgical aftercare (principal) | CPT/HCPCS: 72070; 87635 ==

== ENCOUNTER → 2021-09-06 15:36 | Outpatient (BNVA) | payer MEDICARE, OTHER, SELFPAY | PROVIDERS: PCP Nurse Practitioner Family; Visit Provider Orthopaedic Surgery | DX: Z01.818 Encounter for other preprocedural examination (principal); Z98.890 Other specified postprocedural states | CPT/HCPCS: 72070; 72100; 87635 ==

== ENCOUNTER → 2021-09-07 00:01 | Outpatient (BNVA) | payer MEDICARE, OTHER, SELFPAY | PROVIDERS: PCP Nurse Practitioner Family; Visit Provider Orthopaedic Surgery | DX: Z20.822 Contact with and (suspected) exposure to COVID-19 (principal); Z48.89 Encounter for other specified surgical aftercare; Z01.818 Encounter for other preprocedural examination | CPT/HCPCS: 87635 ==

== ENCOUNTER 2021-09-11 08:49 | Outpatient (CLI) | payer MEDICARE, OTHER, SELFPAY ==
[2021-09-11 09:38] VITALS: BMI 22.6
--- NOTE | 2021-09-11 09:38 | ECG_ITS ---
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 Interpretive Statements NAME OF STUDY: LEXISCAN SESTAMIBI STRESS TEST INDICATION: [Shortness of Breath, ] Procedure: At the baseline, the blood pressure was 149/75 mmHg with a heart rate of 53 bpm. The electrocardiogram showed sinus bradycardia, normal axis with normal ST and T's. The Lexiscan was infused over a period of 20 seconds. A total of 0.4 mg of Lexiscan was infused. The stress phase was continued for a total of 5 minutes. Heart rate was at the end of stress phase was 73 bpm and a blood pressure of 163/76 mmHg. The EKG at the peak infusion revealed since normal sinus rhythm with no significant ST-T wave changes. Sestamibi was injected 20 seconds after the Lexiscan infusion. Blood pressure at the end of recovery phase was 149/69 mmHg with a heart rate of 78 bpm. Conclusion: 1. Normal EKG response to Lexiscan infusion 2. No Lexiscan induced chest pain or cardiac arrhythmia. 3. Normal blood pressure and heart rate response. 4. Sestamibi/sestamibi perfusion scan pending; see separate report. Electronically Signed On 10-08-2021 10:28:11 NEUROLOGY TECHNOLOGIST by Bryn Hoffman M.D. [id number]
--- NOTE | 2021-09-11 09:39 | NMCV_ITS ---
NM yolanda perf SPECT r/s* [id number] Estefany Neumann Age: 66 Gender: F : 1955 Exam Date: 09/11/2021 10:18 Ordering Phys: Leilani Ojeda MD ([email or web address]) Technologist: MAGAN Martinez Exam Location: [facility] Indications: SHORTNESS OF BREATH STRESS TEST Please [facility] for [facility] IMAGE PROTOCOL Rest/Stress 1 Lexiscan Day Radiopharmaceutical Dose (mCi) Administration Site Administered by Rest: Tc-99m 10.8 IV MAGAN Bryan Sestamibi Stress:Tc-99m 32.6 IV MAGAN Bryan Sestamibi Rest: 11-Sep-2021 60 Discovery 630 Stress: 11-Sep-2021 30 Discovery 630 0.4mg Lexiscan. Supine position only as patient was unable to lay prone. SPECT RESULTS Technical Quality: Excellent Raw Data Analysis: Normal Image Corrections: No attenuation or motion correction applied Summed Stress Score: 8 Summed Rest Score: 10 Summed Difference Score: 2 PERFUSION FINDINGS There is a medium sized, fixed perfusion defect in the apical wall likely secondary to attenuation artifact. No evidence of ischemia is noted FUNCTIONAL RESULTS (calculated via Gated SPECT) Stress Image LV EF (%): 87 Stress EDV (mL):54 TID: 0.97 Stress ESV (mL):7 FUNCTIONAL FINDINGS: There is normal left ventricular systolic function. IMPRESSIONS 1. Abnormal myocardial perfusion imaging with fixed defect seen in the apical wall likely attenuation artifact. No evidence of ischemia 2. LV systolic function is normal Bryn Hoffman MD (Electronically Signed) Final Date: 11 September 2021 13:01 S
[2021-09-11] MEDS: regadenoson 0.4 Mg/5 ml Syringe IVP (11:07)
[2021-09-11] MEDS: ondansetron 2 mg/ML SDV 2 mL 4 MG IVP (11:07)
[2021-09-11 11:19] VITALS: BP 147/59; PULSE 71
== END 2021-09-11 08:50 | disposition home or self-care (01) ==
LOC: CDL 08:50
PROVIDERS: PCP Nurse Practitioner Family; Visit Provider Internal Medicine Cardiovascular Disease
DX: R07.9 Chest pain, unspecified (principal); Z01.818 Encounter for other preprocedural examination; R06.02 Shortness of breath
CPT/HCPCS: 78452; 93017; A9500; J2405; J2785

== ENCOUNTER 2021-09-12 08:11 | Day surgery (SDC) | payer MEDICARE, OTHER, SELFPAY ==
[2021-09-11 13:22] VITALS: BMI 23.6
[2021-09-12] VITALS (8 sets, daily range): BP systolic 114–203; BP diastolic 54–106; PULSE 45–79; RESP 12–20; TEMP 36.1–36.6; O2SAT 92–100
--- NOTE | 2021-09-12 | SCC_ITS ---
Procedure Done: 1. T7- T10 instrumentation 2. T9 kyphoplasty 3. Removal of hardware from spine 45 seconds of fluoroscopic guidance, for a cumulative dose of 4.78 mGy, was provided to Dr. Guerrero by the radiology department. C-arm images of the thoracic spine were saved for the patient's permanent record. [facility]
--- NOTE | 2021-09-12 08:20 | SC_ITS ---
WS: [id number] C-ARM RADIOGRAPHS SPINE; 4 IMAGES HISTORY: surgery COMPARISON: None available. Intraoperative imaging during extensive thoracic and lumbar fusion. Quality of examination is subopti mal to evaluate exact levels or for complications. SC/C-arm FL for Kyphoplasty IMPRESSION: Intraoperative imaging during extensive spinal fusion.
[2021-09-12] MEDS: sodium chloride 0.9% 1,000 ML 30 ML IV (08:59)
[2021-09-12 09:15] LABS: Basophils # 0.1 10^3/uL (0.0-0.1); Basophils % 0.8 %; Eosinophils # 0.5 10^3/uL (0.0-0.8); Eosinophils % 8.1 %; Hematocrit 37.9 % (37.0-47.0); Lymphocytes # 1.3 10^3/uL (0.8-4.8); Lymphocytes % 21.6 %; Mean Corpuscular HGB Conc 31.7 g/dL (30.0-36.0); Mean Corpuscular Hemoglobin 28.6 pg (28.0-34.0); Mean Corpuscular Volume 90.5 fl (81-99); Mean Platelet Volume 10.2 fL (7.4-10.4); Monocytes # 0.5 10^3/uL (0.2-0.9); Monocytes % 7.8 %; Neutrophils # 3.69 10^3/uL (1.8-7.7); Neutrophils % 61.4 %; Nucleated Red Blood Cells % 0 %; Platelet Count 342 10^3/cmm (130-400); Red Blood Count 4.19 10^6/uL (4.1-5.3); Red Cell Distribution Width 13.7 % (12.1-15.1)
--- NOTE | 2021-09-12 09:15 | PM.OP ---
Operative Report Date of procedure: September 12, 2021 Pre-op Diagnosis: T8 and T9 Compresssion fracture Post-op diagnosis: same Procedure Done: 1. T8 kyphoplasty 2. T9 kyphoplasty Surgeon: Mauricio Guerrero Anesthesia: General Estimated blood loss (mL): 5 Condition: stable Disposition: PACU Procedure: 1. T8 kyphoplasty 2. T9 kyphoplasty Patient was brought to the operative suite after undergoing anesthesia was placed in a prone position. All areas impingement well-padded. Patient was prepped and draped normal sterile fashion. Skin incision was made over the T9 pedicle on the left side. The starting awl was inserted through the pedicle pain attention to the endplates and the pedicles. The drill was placed and then the bone from the drill was sent for culture. The balloon was then inserted in the balloon both of the endplate where the screw below had likely broken through. Next attention was brought to the T8 level. The awl was inserted followed by the drill followed by the balloon. The cement was then inserted into the T8 and T9 levels. The cement tracked into the disc and of the T10 T9 level. And then the T8 cement was inserted into the preposition. The AP lateral fluoroscopy inserted the cement was in good position and wounds were irrigated closed with nylon suture sterile dressings applied patient was transferred to the PACU in some addition.
--- NOTE | 2021-09-12 09:36 | P.ANESASSM_ITS ---
Pre-Anesthetic Assessment Pre-Anesthetic Assessment: Height/Weight: Height 1.55 m Weight 56.699 kg Temp Pulse Resp BP Pulse Ox 97 F L 62 16 139/99 92 09/12/21 09:03 09/12/21 09:03 09/12/21 09:03 09/12/21 09:03 09/12/21 09:03 Preop Diagnosis: T8 and T9 Compresssion fracture Proposed Procedure: Operation Date: 09/12/21 09:25 Proposed Procedures p Hardware Removal Back [id number] T84.296(Not Applicable) - Mauricio Guerrero DO s Kyphoplasty T9(Not Applicable) - Mauricio Guerrero DO Familial anesthetic complications: None Was Beta Kian taken within 24 hours: N/A Was Clonidine taken within 24 hours: N/A Last intake: Intake Last Liquid Date 09/11/21 Last Liquid Time 18:00 Last Solid Date 09/11/21 Last Solid Time 18:00 Social: Social History: No alcohol and No tobacco Exam: Pre-Anes Outpt Exam: alert, oriented x 3, clear to auscultation bilaterally and regular rate & rhythm Airway: Cervical ROM: WNL MP: 3 Dentition: False Pulmonary: Pulmonary: COPD CV/HEM: CV/HEM: CAD, HTN and PVD Comments: Patient seen Dr. Ojeda for cardiac clearance prior to surgery. She had pending stress test yesterday, report still in draft form, unfortunately Rusty is off this week, Dr. Hoffman evaluated stress test and it was negative for ischemia. Will proceed : : Chronic renal Insufficiency Hepatic: Comments: fatty liver GI: GI: GERD Anesthetic Plan: ASA status: 4 Anesthesia: General Risk of > 500 ml blood loss (7ml/kg in children): No Meds/Allergies Current Medications: Current Medications Generic Name Dose Route Start Last Admin Trade Name Freq PRN Reason Stop Dose Admin Sodium Chloride 1,000 mls @ 30 ml s/hr 09/12/21 08:30 09/12/21 08:59 Sodium Chloride 0.9% IV 09/13/21 08:29 30 mls/hr .Q24H RICHIE Administration PFSH Anesthesia PFSH: Medical History AAA (abdominal aortic aneurysm) Carpal tunnel syndrome Chronic kidney disease COPD (chronic obstructive pulmonary disease) Coronary artery disease Coronary atherosclerosis GERD (gastroesophageal reflux disease) HTN (hypertension) Insomnia Migraine Non-alcoholic fatty liver disease PAD (peripheral artery disease) Surgical History History of cataract removal with insertion of prosthetic lens History of cholecystectomy History of foot surgery History of heart artery stent History of intestinal surgery Hx of appendectomy Hx of tonsillectomy Previous back surgery Family History Other No significant family history Social History Smoking and tobacco status: former smoker Alcohol intake: never Lives independently: Yes Household members: spouse Marital status: Current occupational status: retired Data Anesthesia CBC & Chem 7: 09/12/21 09:05 Other Labs: Laboratory Results - last 48 hr 09/12/21 09:05 WBC 6.0 RBC 4.19 Hgb 12.0 Hct 37.9 MCV 90.5 MCH 28.6 MCHC 31.7 RDW 13.7 Plt Count 342 MPV 10.2 Neut % (Auto) 61.4 Lymph % (Auto) 21.6 [place] % (Auto) 7.8 Eos % (Auto) 8.1 Baso % (Auto) 0.8 Neut # (Auto) 3.69 Lymph # (Auto) 1.3 [place] # (Auto) 0.5 Eos # (Auto) 0.5 Baso # (Auto) 0.1 Nucleated RBC % (auto) 0 Nucleated RBCs # 0.0 Cardiac Studies: No Data to Display
--- NOTE | 2021-09-12 09:38 | W.PM.OPSUD ---
Surgery/Procedure H&P Update DATE OF PROCEDURE: September 12, 2021 DATE H&P PERFORMED: 09/06/21 H&P UPDATE INFORMATION: I have reviewed H&P completed within last 30 days, I have examined patient prior to procedure and No changes to prior documentation PREOP DIAGNOSIS: T8 and T9 Compresssion fracture PLANNED PROCEDURE: Operation Date: 09/12/21 09:25 Proposed Procedures p Hardware Removal Back [id number] T84.296(Not Applicable) - Mauricio Guerrero DO s Kyphoplasty T9(Not Applicable) - Mauricio Guerrero DO
[2021-09-12] MEDS: vancomycin 1,000 MG SDV 1000 MG (10:25)
--- NOTE | 2021-09-12 11:01 | PM.OP ---
Operative Report Date of procedure: September 12, 2021 Pre-op Diagnosis: T9 comrpession fracture; failed hardware Post-op diagnosis: same Procedure Done: 1. T7- T10 instrumentation 2. T9 kyphoplasty 3. Removal of hardware from spine Surgeon: Mauricio Guerrero Cigarette Tipper: Kin Chaudhary Cigarette Tipper: The dental laboratory assistant, Kin Chaudhary, YAMIL was needed for his expertise under the microscope. He was important and necessary throughout the procedure to complete in a safe and timely manner. He assisted with patient positioning prepping and draping tissue retraction suctioning of the operative field protection of the dural sac and tissue closure Anesthesia: General Estimated blood loss (mL): 20 Condition: stable Disposition: PACU Procedure: 1. T7- T10 instrumentation 2. T9 kyphoplasty 3. Removal of hardware from spine Patient was brought to the operative suite after ongoing anesthesia was placed in the prone position. All areas impingement well-padded patient's prepped and draped in a sterile fashion. Skin is made over the top part of the incision. The thoracolumbar fascia was identified attention was just brought to the right side at this point. The screws had pulled out were identified. The nusrat was then exposed along with the screws. Caps were then removed and then the 4 screws on the right side were then backed out and removed. The attention was then brought to doing the T9 kyphoplasty. The starting awl was inserted on the left side this was a side the pedicle was visual to visualize at. The drill was then inserted and then the balloon. Balloon was inflated and then removed and then cement was injected into the T9 vertebrae. The cement tract up a little bit into the disc base at the T9-10 level. At this point the kyphoplasty was stopped. An AP and lateral fluoroscopy ensured that the cement was in the prone position. No tracking back to the canal. The tubes removed. And then a 6 5 screws were placed at T7 and T8. And a nusart was inserted into the nusrat connector and into the T7-T8 screws on the right side. Once 2 screws were placed the nusrat was slid through into the connector and the 2 caps and the connector were torqued down and then the caps were placed on the T7-T8 screws in the right side. And AP lateral fluoroscopy ensured the screws and hardware preposition. Wounds irrigated pink powder was placed and wound was closed with 0 Vicryl 2-0 Vicryl and nylon suture. Sterile dressings were applied and patient was transferred to the PACU in stable condition.
[2021-09-12] MEDS: labetalol 5 mg/mL SDV 20mL IVP (11:29)
[2021-09-12] MEDS: HYDROcodone-acetaminophen 10-325 mg Tablet 1 TAB PO (12:27)
--- NOTE | 2021-09-12 15:04 | ANE.PACU2 ---
Inpatient post-anesthesia follow up: Airway intact: Yes Vital signs: Temperature 97.2 F Pulse Rate 45 Respiratory Rate 16 Blood Pressure 119/54 Pulse Oximetry 94 Oxygen Delivery Me thod Room Air Oxygen Flow Rate 5 Fraction of Inspir ed Oxygen Hydration adequate: Yes Nausea and vomiting: No Pain level: 2 Mental status: Baseline
== END 2021-09-12 13:45 | disposition home or self-care (01) ==
PROVIDERS: PCP Nurse Practitioner Family; Visit Provider Orthopaedic Surgery
PROC: (CPT 22513; principal; 2021-09-12 09:25)
PROC: (CPT 22513; 2021-09-12 09:25)
DX: S22.070A Wedge compression fracture of T9-T10 vertebra, initial encounter for closed fracture (principal); X58.XXXA Exposure to other specified factors, initial encounter; J44.9 Chronic obstructive pulmonary disease, unspecified; I25.10 Atherosclerotic heart disease of native coronary artery without angina pectoris; K21.9 Gastro-esophageal reflux disease without esophagitis; I12.9 Hypertensive chronic kidney disease with stage 1 through stage 4 chronic kidney disease, or unspecified chronic kidney disease; N18.9 Chronic kidney disease, unspecified; Z87.891 Personal history of nicotine dependence
CPT/HCPCS: 22513; 22610; 22614 ×3; 22842; 36415; 76000; 85025; C1713; J0690; J2405; J2704; J2710; J3010; J3370; J3490; J7030

== ENCOUNTER → 2022-01-08 10:25 | Outpatient (BNVA) | payer MEDICARE, OTHER, SELFPAY | PROVIDERS: PCP Nurse Practitioner Family; Visit Provider Orthopaedic Surgery | DX: Z48.89 Encounter for other specified surgical aftercare (principal) | CPT/HCPCS: 72070 ==

== ENCOUNTER → 2022-04-16 09:57 | Outpatient (BNVA) | payer MEDICARE, OTHER, SELFPAY | PROVIDERS: PCP Nurse Practitioner Family; Visit Provider Orthopaedic Surgery | DX: Z47.89 Encounter for other orthopedic aftercare (principal); Z98.890 Other specified postprocedural states; Z98.1 Arthrodesis status | CPT/HCPCS: 72070; 99213; 99214 ==

== ENCOUNTER → 2022-06-27 10:41 | Outpatient (BNVA) | payer MEDICARE, OTHER, SELFPAY | PROVIDERS: PCP Nurse Practitioner Family; Visit Provider Orthopaedic Surgery | DX: Z47.89 Encounter for other orthopedic aftercare (principal); Z98.890 Other specified postprocedural states; Z98.1 Arthrodesis status | CPT/HCPCS: 72070; 99213 ==

== ENCOUNTER 2022-12-04 10:26 | Emergency (ER) | payer MEDICARE, OTHER, SELFPAY ==
[2022-12-04] VITALS (23 sets, daily range): BP systolic 123–175; BP diastolic 57–69; PULSE 37–54; RESP 13–22; TEMP 36.3; O2SAT 85–97; BMI 23.6
--- NOTE | 2022-12-04 11:19 | ED_ITS ---
HPI - Back Pain/Injury General: Chief Complaint: Back Pain/Injury Stated Complaint: back pain, trouble walking Time Seen by Provider: 12/04/22 11:08 Source: patient and family Mode of arrival: ambulatory Limitations: no limitations History of Present Illness: Patient is a nice 67-year-old female who presents to ED today with a complaint of mid back and left-sided back pains. Patient states yesterday while in the kitchen she heard a pop/crunch in her mid back and began noticing pain. Patient states she has an extensive history of back pain. She recently underwent thoracic fusion by Dr. Guerrero. Patient states pain is radiating into her left ribs. It is worse with palpation and movement. He is not having any chest pain, difficulty breathing, or shortness of breath. No abdominal pain. MD elicited complaint: back pain Pertinent past history: prior back pain Onset (ago): day(s) Timing: constant Severity: moderate Similar Symptoms Previously: Yes Location: thoracic spine and left upper back Radiation: none Exacerbating factors: movement Relieving factors: none Associated symptoms: Reports no associated symptoms; Deny abdominal pain, chills, dysuria, fatigue, fever(s), hematuria, nausea, syncope or vomiting Work related injury: No Review of Systems Const: Denies: fever(s), chills, body aches, fatigue or malaise Card: Reports: chest pain (L lower chest wall pain); Denies: palpitations, irregular heart rhythm, edema, swelling of feet/ankles, l ightheadedness, syncope, pre-syncope, dyspnea on exertion, orthopnea, leg pain with exertion or acrocyanosis Resp: Denies: dyspnea, productive cough, non-productive cough, wheezing, hemoptysis or chest congestion GI: Denies: abdominal pain, nausea, vomiting or diarrhea : Denies: flank pain, dysuria or hematuria Musc: Reports: back pain; Denies: neck pain, extremity pain, extremity swelling, joint pain or joint swelling Skin/Breast: Denies: rash Neuro: Denies: headache(s), numbness in extremities, weakness in extremities or sensory changes PFS ED PFSH: Medical History AAA (abdominal aortic aneurysm) Carpal tunnel syndrome Chronic kidney disease COPD (chronic obstructive pulmonary disease) Coronary artery disease Coronary atherosclerosis GERD (gastroesophageal reflux disease) HTN (hypertension) Insomnia Migraine Non-alcoholic fatty liver disease PAD (peripheral artery disease) Surgical History History of cataract removal with insertion of prosthetic lens History of cholecystectomy History of foot surgery History of heart artery stent History of intestinal surgery Hx of appendectomy Hx of tonsillectomy Previous back surgery Family History Other No significant family history Social History Smoking and tobacco status: former smoker Alcohol intake: never Lives independently: Yes Household members: spouse Marital status: Current occupational status: retired Physical Exam Const: COMMON NORMALS: no acute distress, average body habitus, patient oriented x3, no limitations, healthy appearing, alert and well nourished GENERAL APPEARANCE: cooperative ORIENTATION/CONSCIOUSNESS: Yes awake, Yes oriented to person, Yes oriented to place and Yes oriented to time HENMT: COMMON NORMALS: normocephalic and atraumatic HEAD & SCALP: normal to inspection, normocephalic and atraumatic Neck/C-Spine: COMMON NORMALS: full ROM GENERAL: Yes normal visual inspection CERVICAL SPINE: No pain with cervical ROM, No Cervical spine tenderness and No Paracervical muscle tenderness Chest: COMMONS NORMALS: normal inspection of the chest OTHER: TTP mid L posteriolateral ribs; no crepitus noted; lung sounds normal; palpation directly reproduces patient's discomfort Resp: COMMON NORMALS: normal respiratory effort and clear to auscultation bilaterally AUSCULTATION: clear to auscultation bilaterally Cardio: COMMON NORMALS: regular rate and regular rhythm RATE: regular rate RHYTHM: regular rhythm GI: COMMON NORMALS: Normal to inspection, nondistended, normoactive bowel sounds present, Soft to palpation, non-tender, No hepatosplenomegaly present and no masses PALPATION: Yes Soft to palpation and Yes No hepatosplenomegaly present : COMMON NORMALS: Yes no CVA tenderness BLADDER/KIDNEY EXAM: Yes no CVA tenderness Back/Pelvis: COMMON NORMALS: no CVA tenderness THORACIC SPINE/UPPER BACK: Yes ROM limited, Yes thoracic spinal tenderness, Yes paraspinal muscle tender ness and No paraspinal muscle spasm LUMBAR SPINE/LOWER BACK: No lumbar spinal tenderness, No paraspinal muscle tenderness and No paraspinal muscle spasm PELVIS: Yes buttocks normal SACROILIAC JOINTS: Yes SI joints normal SACRUM: no tenderness COCCYX: no tenderness BACK IMAGE (FEMALE): 1. TTP wrapping around to lateral ribs as well; palpation directly reproduces patient's pain Extremity: COMMON NORMALS: normal to inspection and full ROM GENERAL: Yes normal exam except as noted Neuro: JAKE COMA SCALE: document GCS findings Jake coma scale eye opening: Spontaneous Taylor coma scale verbal response: Orientated Taylor coma scale motor response: Obey commands Jake coma scale total score: 15 COMMON NORMALS: patient oriented x3, moves all extremities, no focal motor deficits and no sensory deficits noted SENSORIUM/ORIENTATION: Yes alert, Yes oriented to person, Yes oriented to place and Yes oriented to time Skin: COMMON NORMALS: no rashes or lesions noted GENERAL SKIN EXAM: no rashes or lesions noted TRAUMA: no lacerations or abrasions Course Vital Signs: Vital signs: Vital Signs Temperature 97.3 F L 12/04/22 10:30 Pulse Rate 48 L 12/04/22 12:10 Respiratory Rate 16 12/04/22 12:24 Blood Pressure 145/57 12/04/22 12:00 Pulse Oximetry 93 12/04/22 10:30 Oxygen Delivery Me thod 12/04/22 10:30 MDM - Back Pain/Injury Medical Decision Making Patient is a nice 67-year-old female presents to ED today with a complaint of thoracic back pain radiating around into her left ribs after hearing a pop/crunch yesterday. Pain is easily reproducible with movement and palpation of area. CT scan shows a chronic T9 compression fracture. Her postoperative hardware appears normal. Vital signs are stable apart from some asymptomatic bradycardia. This time recommend conservative treatment at home. Strict return ED precautions given if she begins having chest pain, shortness of breath, difficulty breathing, uncontrollable back pain or abdominal pain, dizziness/syncope, or any other concerns she may have. Labs Radiology Impressions Ribs X-Ray 12/04/22 11:39 Impression: 1. Negative left rib detail. 2. No acute cardiopulmonary disease is seen. 3. Extensive thoracolumbar posterior fusion. Thoracic Spine CT 12/04/22 11:39 IMPRESSION: 1. Osteopenia with chronic T9 compression fracture and vertebral plasty in the postoperative thoracic spine. 2. Multilevel degenerative change and vacuum discs. Discharge Plan Discharge Patient Disposition: Home Clinical Impression: Strain of thoracic back region Condition: Stable Prescriptions: New ibuprofen 800 mg tablet 800 mg PO Q8H PRN (Reason: pain) Qty: 20 0RF hydrocodone-acetaminophen 5-325 mg tablet 1 tab PO Q6H PRN (Reason: pain) Qty: 14 0RF No Action (DME) abdominal binder See Rx Instructions .Route .MEDSUPPLY Qty: 1 0RF Rx Instructions: As directed rosuvastatin 40 mg tablet 40 mg PO QAM rizatriptan 10 mg tablet 10 mg PO Q2H PRN (Reason: migraines) Rx Instructions: do not exceed 3 doses per 24 hrs nitroglycerin 0.4 mg tablet, sublingual 0.4 mg sublingual Q5M PRN (Reason: Chest Pain) Rx Instructions: do not exceed 3 doses per episode duloxetine 30 mg capsule,delayed release(DR/EC) 30 mg PO QAM clopidogrel 75 mg tablet 75 mg PO BEDTIME albuterol sulfate 90 mcg/actuation HFA aerosol inhaler 2 puff inhalation Q6H PRN (Reason: shortness of breath) (DME) TLSO back brace See Rx Instructions .Route .MEDSUPPLY Qty: 1 0RF Rx Instructions: As directed. Patient will be in town on on 07/31 metoprolol succinate 100 mg tablet extended release 24 hr 50 mg PO EVERY OTHER DAY ropinirole 5 mg tablet 5 mg PO BID tizanidine 4 mg tablet 4 mg PO TID PRN (Reason: Muscle Spasm) Aspir-81 81 mg Tablet,Delayed Release (Dr/Ec) 81 mg PO DAILY PRN (Reason: Chest Pain) Tylenol Ex Str Rapid Release 500 mg Tablet 1,000 mg PO Q6H PRN (Reason: Pain) famotidine 20 mg tablet 20 mg PO BID budesonide 0.5 mg/2 mL Suspension For Nebulization 0.5 mg INHALATION BID PRN (Reason: unknown) ergocalciferol (vitamin D2) 1,250 mcg (50,000 unit) capsule 50,000 unit PO Q7D Rx Instructions: on fri Claritin 10 mg Tablet 10 mg PO DAILY PRN (Reason: Allergy Symptoms) formoterol fumarate [Perforomist] 20 mcg/2 mL Solution For Nebulization 2 ml INHALATION BID PRN (Reason: unknown) Breo Ellipta 200-25 mcg/dose Blister With Device 1 inh INHALATION DAILY Discharge Orders: Discharge ED (Routine); Ordered 12/04/22 Ordered By: Celine Maldonado Referrals: Sienna Mills FNP [Primary Care Provider] - Patient Instructions: Opioid Safety, Pain Management Activity Restrictions/Additional Instructions: As we discussed you may try heat and ice at home in addition to the anti- inflammatory and pain medication given to you today. You need to return to the emergency department for worsening or uncontrollable pain, chest pain, shortness of breath, difficulty breathing, severe abdominal pains, or any other concerns you may have. Otherwise please follow-up with primary care in 2 to 3 days for re-evaluation. 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
--- NOTE | 2022-12-04 11:39 | CTR_ITS ---
PROCEDURE INFORMATION: Exam: CT Thoracic Spine Without Contrast Exam date and time: 12/04/2022 11:57 AM Age: 67 years old Clinical indication: Pain in thoracic spine; Prior surgery; Additional info: Back pain/injury TECHNIQUE: Imaging protocol: Computed tomography of the thoracic spine without contrast. Radiation optimization: All CT scans at this facility use at least one of these dose optimization techniques: automated exposure control; mA and/or kV adjustment per patient size (includes targeted exams where dose is matched to clinical indication); or iterative reconstruction. COMPARISON: CT thoracic spin wo con* [id number] 08/02/2021 10:21 AM RADIATION DOSE METRICS: Total DLP (mGy-cm): 628.81 FINDINGS: Bones/joints: Osteopenia with chronic T9 compression fracture and vertebral plasty. Laminectomy and pedicle screw fixation extending from T7 to L1. Multilevel degenerative change and vacuum discs. Soft tissues: Infiltration of posterior subcutaneous fat at the operative site. Lungs: Emphysematous change, interstitial disease, and dependent airspace disease. CT/CT thoracic spin wo con* [id number] IMPRESSION: 1. Osteopenia with chronic T9 compression fracture and vertebral plasty in the postoperative thoracic spine. 2. Multilevel degenerative change and vacuum discs.
--- NOTE | 2022-12-04 11:39 | XR_ITS ---
WS: [id number] Chest AP portable upright with left rib detail, 12/04/2022 Clinical Data: injury/pain Comparison: Two-view chest, 08/17/2021 Findings: The lungs show no nodules, masses, or effusions. The heart is normal. No pneumonia or pneumothorax is seen. There is an extensive thoracolumbar posterior fusion with bilateral pedicle screws and connecting nusrat s. The superior right pedicle screws and proximal connecting nusrat have been removed from T3 to T5. The re is vertebroplasty cement in the T9 vertebral body. The ribs are intact. No rib fractures seen. No subcutaneous emphysema is present. XR/XR ribs LT mn 3V w [id number] Impression: 1. Negative left rib detail. 2. No acute cardiopulmonary disease is seen. 3. Extensive thoracolumbar posterior fusion.
[2022-12-04] MEDS: morphine 4 mg/mL SDV 1 mL IM (12:24)
== END 2022-12-04 13:44 | disposition home or self-care (01) ==
PROVIDERS: Emergency Provider Physician Assistant; PCP Nurse Practitioner Family
DX: S29.012A Strain of muscle and tendon of back wall of thorax, initial encounter (principal); Z79.82 Long term (current) use of aspirin; Z79.02 Long term (current) use of antithrombotics/antiplatelets; I12.9 Hypertensive chronic kidney disease with stage 1 through stage 4 chronic kidney disease, or unspecified chronic kidney disease; N18.9 Chronic kidney disease, unspecified; J44.9 Chronic obstructive pulmonary disease, unspecified; I25.10 Atherosclerotic heart disease of native coronary artery without angina pectoris; Z87.891 Personal history of nicotine dependence; X58.XXXA Exposure to other specified factors, initial encounter
CPT/HCPCS: 71101; 72128; 96372; 99284; J2270

== ENCOUNTER → 2023-09-17 10:00 | Outpatient (BNVA) | payer MEDICARE, OTHER, SELFPAY | PROVIDERS: PCP Nurse Practitioner Family; Visit Provider Orthopaedic Surgery | DX: M54.50 Low back pain, unspecified (principal); M54.9 Dorsalgia, unspecified; M54.6 Pain in thoracic spine | CPT/HCPCS: 72072; 72100; 99214 ==

== ENCOUNTER → 2024-02-03 09:02 | Outpatient (BNVA) | payer MEDICARE, OTHER, SELFPAY | PROVIDERS: PCP Nurse Practitioner Family; Visit Provider Physician Assistant | DX: M79.602 Pain in left arm (principal); R22.32 Localized swelling, mass and lump, left upper limb | CPT/HCPCS: 73090; 99203 ==

== ENCOUNTER → 2025-01-11 10:44 | Outpatient (BNVA) | payer MEDICARE, OTHER, SELFPAY | PROVIDERS: PCP Nurse Practitioner Family; Visit Provider Orthopaedic Surgery | DX: M54.9 Dorsalgia, unspecified (principal); M25.552 Pain in left hip | CPT/HCPCS: 72072; 72110; 73502; 99213 ==

== ENCOUNTER → 2025-01-27 10:50 | Outpatient (BNVA) | payer MEDICARE, OTHER, SELFPAY | PROVIDERS: PCP Nurse Practitioner Family; Visit Provider Orthopaedic Surgery | DX: M25.552 Pain in left hip (principal) | CPT/HCPCS: 73502; 99213 ==

== ENCOUNTER → 2025-02-23 09:46 | Outpatient (BNVA) | payer MEDICARE, OTHER, SELFPAY | PROVIDERS: PCP Nurse Practitioner Family; Visit Provider Student in an Organized Health Care Education/Training Program | DX: M70.61 Trochanteric bursitis, right hip (principal); M16.11 Unilateral primary osteoarthritis, right hip | CPT/HCPCS: 20610; 99204; J3301; J3490; J9999 ==

== ENCOUNTER → 2025-06-15 09:52 | Outpatient (BNVA) | payer MEDICARE, OTHER, SELFPAY | PROVIDERS: PCP Nurse Practitioner Family; Visit Provider Student in an Organized Health Care Education/Training Program | DX: M16.11 Unilateral primary osteoarthritis, right hip (principal); M70.61 Trochanteric bursitis, right hip | CPT/HCPCS: 99213 ==

== ENCOUNTER → 2025-07-15 11:44 | Outpatient (BNVA) | payer MEDICARE, OTHER, SELFPAY | PROVIDERS: PCP Nurse Practitioner Family; Visit Provider Student in an Organized Health Care Education/Training Program | DX: M16.11 Unilateral primary osteoarthritis, right hip (principal) | CPT/HCPCS: 20610; 77002; J3301; J9999 ==